=== PATIENT | male | born 1940 | race Caucasian/White ===

== ENCOUNTER → 2016-08-12 | Outpatient (CLI) | payer OTHER ==
[~2016-08-12] MED LIST: ASPCH81; BUPR-79 PO; LISI-725 PO
[2016-08-12 11:54] LABS: BASO % 0.4 %; BASO ABS # 0.03 K/uL (0-0.2); COMPLETE YES; EOS % 1.3 %; HEMATOCRIT 38.1 % (42-52); IG% 0.1 %; LYMPH % 28.8 %; MEAN CELL VOLUME 95.5 fL (80-100); MEAN CORPUSCULAR HEMOGLOBIN 31.6 pg (25-34); MEAN CORPUSCULAR HGB CONC 33.1 g/dl (32-36); MEAN PLATELET VOLUME 11.1 fL (7.4-10.4); NEUT % 60.4 %; PLATELET COUNT 211 K/uL (130-400); RED BLOOD COUNT 3.99 M/uL (4.7-6.1); WHITE BLOOD COUNT 7.63 K/uL (4.8-10.8)
[2016-08-12 12:05] LABS: ALT/SGPT 27 U/L (12-78); BLOOD UREA NITROGEN 21 mg/dl (7-18); BUN/CREATININE RATIO 13.3 (10-20); CARBON DIOXIDE 26 mmol/L (21-32); CHLORIDE 105 mmol/L (98-107); CHOLESTEROL 124 mg/dl (0-200); GLUCOSE 98 mg/dl (70-99); POTASSIUM 4.8 mmol/L (3.5-5.1); SODIUM 137 mmol/L (136-145); TRIGLYCERIDES 57 mg/dl (0-150); VERY LOW DENSITY LIPOPROT CALC 11 mg/dl
[2016-08-12 12:08] LABS: ALKALINE PHOSPHATASE 62 U/L (45-117); AST/SGOT 25 U/L (15-37); CHOLESTEROL/HDL RATIO 2.3; HDL CHOLESTEROL 54 mg/dl; LDL CHOLESTEROL CALCULATED 59 mg/dl
[2016-08-12 12:13] LABS: URINE APPEARANCE CLEAR (CLEAR); URINE BILIRUBIN NEG (NEG); URINE COLOR YELLOW; URINE EPITHELIAL CELL AUTO 0-5 /lpf (0-5); URINE NITRITE NEG (NEG); URINE SPECIFIC GRAVITY 1.008 (1.000-1.030); UROBILINOGEN NEG (NEG); ZZUR CULT IF INDIC CLEAN CATCH NO
[2016-08-12 12:16] LABS: MANUAL MICROSCOPIC REQUIRED? NO; REVIEW REQ? NO
[2016-08-12 12:18] LABS: CALCIUM 9.1 mg/dl (8.5-10.1)
== END | disposition home or self-care (01) ==
LOC: C.LABBFT 09:53
PROVIDERS: ATTEND Internal Medicine
DX: N18.3 Chronic kidney disease, stage 3 (moderate) (principal); D64.9 Anemia, unspecified; Z13.6 Encounter for screening for cardiovascular disorders

== ENCOUNTER → 2016-08-29 | Outpatient (CLI) | payer OTHER ==
--- NOTE | 2016-08-29 12:52 | DIAGNOSTIC IMAGING REPORT ---
CT LUNG SCREENING, LOW DOSE WITH COMPUTER-AIDED DETECTION (CAD) CLINICAL HISTORY: Smoking history. COMPARISON STUDY: Chest CT 11/27/2012. CT DOSE: TECHNIQUE: Low-dose helical CT was acquired without intravenous contrast from lung apices to bases and reconstructed at 2.5 mm every 2 mm. CAD was utilized for this study. FINDINGS: Mild paraseptal emphysema at the lung apices. Stable subcentimeter nodule on image 89. Therefore, this is considered to be benign. Stable subcentimeter nodule within the right upper lobe on image 154. Therefore, this is also considered be benign. These are better described below. Scattered patchy groundglass densities and cystic change within the left lower lobe and lingula remain unchanged. Therefore, this is consistent with chronic changes. Mild right posterior pleural thickening/trace pleural effusion remain stable. The ascending thoracic aorta measures up to 3.9 cm in diameter. The heart is normal in size. Tortuous descending thoracic aorta. Peripheral calcified granulomas within the lung apices. Peripheral irregular densities within the right lung apex favor scarring. This has slightly progressed in the interval. No mediastinal or hilar lymphadenopathy. The visualized liver, spleen, and adrenal glands are unremarkable. Nodule 1 Category: 2 Nodule 1 Status: Baseline Nodule 1 Description: Solid Nodule 1 Lesion ID: 2 Nodule 1 Slice Number: [id number] Nodule 1 Volume (mm3): 59 Nodule 1 Major [place] mm: 5.9 Nodule 1 Minor [place] mm: 4.8 Nodule 2 Category: 2 Nodule 2 Status: Baseline Nodule 2 Description: Solid Nodule 2 Lesion ID: 1 Nodule 2 Slice Number: [id number] Nodule 2 Volume (mm3): 35 Nodule 2 Major [place] mm: 5.4 Nodule 2 Minor [place] mm: 4.7 IMPRESSION: 1. Stable right upper lobe nodules. Therefore, these are considered to be benign. 2. Irregular peripheral scarlike densities within the right lung apex have progressed. This bears watching on future examinations. 3. Mild emphysema. CAD FINDINGS: Overall Lung RADS Category: 2 Lung RADS Management Recommendation: Lung-RADS 2: Continue annual screening in 12 months. Lung RADS Follow Up Date: 2017-08-29 Lung RADS Nodule ID: [id number] Electronically signed by: Federico Lacey M.D. 08/30/2016 8:30 AM Dictated Date/Time: 08/29/2016 11:40 AM
== END | disposition home or self-care (01) ==
LOC: C.CTS 11:21
PROVIDERS: ATTEND Internal Medicine
DX: Z87.891 Personal history of nicotine dependence (principal)

== ENCOUNTER → 2017-02-24 | Outpatient (CLI) | payer OTHER ==
[2017-02-24 12:42] LABS: BASO % 0.2 %; BASO ABS # 0.02 K/uL (0-0.2); COMPLETE YES; EOS % 3.2 %; HEMATOCRIT 38.9 % (42-52); IG% 0.5 %; LYMPH % 38.7 %; LYMPH ABS # 3.23 K/uL (1.2-3.4); MEAN CELL VOLUME 94.6 fL (80-100); MEAN CORPUSCULAR HEMOGLOBIN 31.9 pg (25-34); MEAN CORPUSCULAR HGB CONC 33.7 g/dl (32-36); MEAN PLATELET VOLUME 11.1 fL (7.4-10.4); MONO % 12.3 %; NEUT % 45.1 %; PLATELET COUNT 223 K/uL (130-400); RED BLOOD COUNT 4.11 M/uL (4.7-6.1); WHITE BLOOD COUNT 8.35 K/uL (4.8-10.8)
[2017-02-24 13:02] LABS: BLOOD UREA NITROGEN 34 mg/dl (7-18); BUN/CREATININE RATIO 18.1 (10-20); CARBON DIOXIDE 24 mmol/L (21-32); CHLORIDE 104 mmol/L (98-107); CREATININE 1.85 mg/dl (0.60-1.40); GLUCOSE 88 mg/dl (70-99); POTASSIUM 4.5 mmol/L (3.5-5.1); SODIUM 132 mmol/L (136-145)
[2017-02-24 13:09] LABS: PHOSPHORUS 2.7 mg/dl (2.5-4.9); PROSTATE SPECIFIC ANTIGEN < 0.010 ng/ml (0.000-4.000)
== END | disposition home or self-care (01) ==
LOC: C.LABBFT 09:05
PROVIDERS: ATTEND Internal Medicine
DX: N18.3 Chronic kidney disease, stage 3 (moderate) (principal); D64.9 Anemia, unspecified; E55.9 Vitamin D deficiency, unspecified; C61 Malignant neoplasm of prostate

== ENCOUNTER → 2017-06-01 | Outpatient (CLI) | payer OTHER ==
[2017-06-01 12:29] LABS: ALBUMIN 3.5 gm/dl (3.4-5.0); BLOOD UREA NITROGEN 28 mg/dl (7-18); CALCIUM 9.1 mg/dl (8.5-10.1); CARBON DIOXIDE 26 mmol/L (21-32); CREATININE 1.67 mg/dl (0.60-1.40); GLUCOSE 100 mg/dl (70-99); POTASSIUM 4.7 mmol/L (3.5-5.1); SODIUM 136 mmol/L (136-145)
[2017-06-01 12:30] LABS: PHOSPHORUS 2.3 mg/dl (2.5-4.9)
== END | disposition home or self-care (01) ==
LOC: C.LABBFT 09:20
PROVIDERS: ATTEND Internal Medicine
DX: N18.3 Chronic kidney disease, stage 3 (moderate) (principal)

== ENCOUNTER 2024-06-07 14:49 | Inpatient (IN) ==
[2024-06-07 15:25] LABS: Basophils # (auto) 0.03 K/uL (0.00-0.20); Basophils % (auto) 0.3 %; Eosinophils # (auto) 0.02 K/uL (0.00-0.50); Eosinophils % (auto) 0.2 %; Hematocrit (blood only) 32.3 % (42.0-52.0); Immature Granulocytes # (auto) 0.32 K/uL (0.01-0.20); Immature Granulocytes % (auto) 2.8 %; Lymphocytes # (auto) 2.61 K/uL (1.20-3.40); Lymphocytes % (auto) 22.7 %; Mean Corpuscular Hemoglobin 30.7 pg (25.0-34.0); Mean Corpuscular Hgb Conc 34.1 g/dL (32.0-36.0); Mean Corpuscular Volume 90.2 fL (80.0-100.0); Mean Platelet Volume 11.1 fL (9.4-12.4); Monocytes # (auto) 0.86 K/uL (0.11-0.59); Monocytes % (auto) 7.5 %; Neutrophils # (auto) 7.64 K/uL (1.40-6.50); Neutrophils % (auto) 66.5 %; Platelet Count 213 K/uL (130-400); RDW Coefficient of Variation 14.1 % (11.5-14.5); RDW Standard Deviation 46.5 fL (36.4-46.3); Red Blood Count 3.58 M/uL (4.70-6.10); White Blood Count 11.48 K/ul (4.8-10.8)
[2024-06-07 16:02] LABS: Adenovirus PCR Not Detected (NotDetected); Bordetella parapertussis PCR Not Detected (NotDetected); Bordetella pertussis PCR Not Detected (NotDetected); Chlamydia pneumoniae PCR Not Detected (NotDetected); Coronavirus 229E PCR Not Detected (NotDetected); Coronavirus CoV-2 (COVID19)PCR Not Detected (NotDetected); Coronavirus HKU1 PCR Not Detected (NotDetected); Coronavirus NL63 PCR Not Detected (NotDetected); Coronavirus OC43PCR Not Detected (NotDetected); Human Metapneumovirus PCR Not Detected (NotDetected); Influenza A (H1 2009) PCR DETECTED (NotDetected); Influenza B PCR Not Detected (NotDetected); Mycoplasma pneumoniae PCR Not Detected (NotDetected); Parainfluenza Virus 1 PCR Not Detected (NotDetected); Parainfluenza Virus 2 PCR Not Detected (NotDetected); Parainfluenza Virus 3 PCR Not Detected (NotDetected); Parainfluenza Virus 4 PCR Not Detected (NotDetected); Respiratory Syncytial VirusPCR Not Detected (NotDetected); Rhinovirus/Enterovirus PCR Not Detected (NotDetected)
[2024-06-07 16:06] LABS: Albumin Level 3.8 gm/dl (3.4-5.0); BUN Creatinine Ratio 13.7 (10-20); Bilirubin,Total 0.3 mg/dl (0.2-1.0); Calcium 9.2 mg/dl (8.6-10.3); Creatinine Clr Calc Pharmacy 7.4 ml/min; Globulin 3.7 gm/dl (2.5-4.0); Magnesium 1.9 mg/dl (1.7-2.4); Potassium 4.5 mmol/L (3.5-5.1); Total Protein 7.5 gm/dl (6.0-8.3)
--- NOTE | 2024-06-07 16:06 | XRay Report ---
XR chest 1V not portable CLINICAL HISTORY: Weakness COMPARISON STUDY: 09/03/2018 FINDINGS: Heart size and pulmonary vasculature are normal. There is aortic tortuosity. No effusion, c onsolidation, or pneumothorax seen. There are a few old healed right rib fractures. IMPRESSION: No acute findings. ACT 112: Negative or not required by law. Electronically signed by: Nilton Thacker M.D. 06/07/2024 4:04 PM
[2024-06-07] MEDS: SODIUM CHLORIDE 0.9% 1,000 ML IV SCH (16:51)
[2024-06-07] MEDS: SODIUM CHLORIDE 0.9% 250 ML IV ONE (16:51)
--- NOTE | 2024-06-07 16:53 | CT Scan Report ---
Clinical History: Diarrhea. Decreased appetite Technique: Axial computed tomography images were obtained of the abdomen and pelvis without intravenous contrast. Comparison is made to the chest CT dated 09/03/2018 Findings: The liver is overall of normal size, attenuation, and contour with no sign of cirrhosis or significant fatty infiltration. No definite liver mass lesion is seen on this noncontrast study. The gallbladder appears unremarkable. No bile duct dilatation is noted. The spleen is of normal size. No focal splenic lesion is evident. The pancreas appears normal with no sign of acute or chronic pancreatitis and no mass lesion noted. The pancreatic duct is of normal caliber. The adrenal glands appear unremarkable. No renal or proximal ureteral calculi are seen. There is no hydronephrosis or perinephric stranding. No definite renal mass lesion is identified. There is a 1.6 cm right renal cyst as well as a 1.3 cm right renal cyst There is a mild infrarenal abdominal aortic aneurysm, measuring up to 3.3 cm. No abdominal adenopathy is seen. The stomach appears normal. There is no sign of small bowel obstruction. The colon appears unremarkable. The appendix appears normal also. No free intraperitoneal fluid or air is identified. No distal ureteral or bladder calculi are seen. No obvious bladder mass lesion is evident. 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 No pelvic adenopathy is noted. There are radiotherapy implant seeds within the prostate. There are small bilateral inguinal hernias containing any fat There is unchanged pleural thickening in the right lung base. There are new multifocal centrilobular interstitial and nodular opacities in the lung bases bilaterally, most likely due to bronchopneumonia. The visualized descending thoracic aorta is mildly aneurysmal, measuring 3.1 cm. There is coronary atherosclerosis Lumbar degenerative disc disease is seen. No fracture is identified. No focal osseous lesion is seen Impression: 1. Bilateral bronchopneumonia 2. Mild thoracic aortic aneurysm and mild abdominal aortic aneurysm. 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 Small right renal cysts 4. Small bilateral inguinal hernias containing only fat ACT 112: Positive. There are findings on this exam that require communication between the performing entity and the patient following Patient Test Result Information Act ([place] ACT 112) guidelines. Electronically signed by Terry Corbett 06-07-2024 4:53 PM
--- NOTE | 2024-06-07 17:45 | Emergency Department Note ---
Impression & Plan Influenza, Pneumonia, Acute dehydration, Acute kidney injury, Acute hyponatremia ED Provider Note NAME: RAFAEL TREVINO AGE: 83 SEX: Male INFORMANT: Patient ED PROVIDER(S): Grayson Trinidad MD CHIEF COMPLAINT: Lethargy PLAN: Disposition: Admitted Outpatient prescription management: none Referral: None MEDICAL DECISION MAKING: Patient presented because of feeling lethargic. Workup was initiated. Vital signs were stable. He was found to be flu positive on [employer] testing. CBC and chemistry panel revealed acute kidney injury and hyponatremia. Patient was gently hydrated. Chest x-ray was unremarkable. CT scan of the abdomen and pelvis was done to rule out any obstructive process. He was found to have no evidence of obstruction from a renal standpoint but was found to have pneumonia in the bases. Procalcitonin, blood cultures and antibiotics were ordered. I did discuss his case with on-call nephrology, Dr. Mota. He agreed to hydration and admission for medical management. Consultation was made with Dr. Silva of the [facility] service. Patient was evaluated in the ER for further management. Care/management discussed with: Nephrology, case management Level of care consideration(s): After review of the information above and other included data, I feel the patient requires escalation of care to admission Triage Nursing notes: reviewed and agree them. Vital Signs: reviewed and remarkable for no significant abnormalities Additional History obtained from: none Chronic Medical/Social Conditions affecting care: CKD Prior/ Outside/ External records reviewed: none Differential Diagnosis: Infection, dehydration, metabolic abnormality, hypo/hyperglycemia, electrolyte disturbance, anemia, hypoxia, cardiac sources, intracerebral event, toxicologic, neurologic, as well as other pathologies. Diagnostics, independently interpreted by me: ECG: Twelve-lead ECG reveals a sinus rhythm with PACs at [address] elevation or depression. Cardiac Monitoring: none Medical decision rules: Cardiac monitoring ordered by me: The patient was placed on continuous cardiac monitoring and observed. It revealed a sinus rhythm at 80 bpm with occasional PVC. Imaging studies: Chest x-ray. Findings: A chest x-ray was performed and revealed no pneumothorax, effusion, infiltrate, pulmonary edema, free air under the diaphragm, or wide mediastinum. Impression: No acute disease. CT scan of the abdomen pelvis reveals bibasilar infiltrates. No hydronephrosis or hydroureter. I refer you to the EMR for further details. HPI: 83 year old Male arrives for evaluation of lethargy and abnormal labs. This started earlier this week with flulike symptoms. Patient notes poor p.o. intake and had diarrhea. The patient also notes the following associated symptoms, generalized weakness. Patient denies any leg swelling. He does also note decreased urine output.. The patient has found no relieving factors. Current pain is rated as 0/10. Patient had outpatient blood work by his [employer] architect, Dr. Luevano. He was told to come to the ER due to abnormalities with his renal function. Pt denies LOC, headache, fevers, chills, diaphoresis, visual changes, neck pain, chest pain, breathing difficulties, nausea, vomiting, abdominal pain, back pain, melena, hematochezia, rash, or other complaints.. PAST MEDICAL HISTORY: See Below, CKD PAST SURGICAL HISTORY: See Below, SOCIAL HISTORY: See Below, retired HOME MEDICATIONS: See Below ALLERGIES: See Below VITALS: See Below PHYSICAL EXAMINATION: GENERAL: Awake, alert, [id number], in no distress HENT: Normocephalic, atraumatic. Oropharynx unremarkable. EYES: Normal conjunctiva. Sclera non-icteric. NECK: Inspection normal. Non-tender. Supple. No nuchal rigidity. FROM. No masses. RESPIRATORY: Clear to auscultation. No wheezes. No rales. Normal respiratory effort. CARDIAC: Normal rate. Normal rhythm. Systolic ejection murmur present. No rubs. Extremities warm and well perfused. Pulses equal. No JVD. GI: Soft, non-distended. No tenderness to palpation. No rebound or guarding. No masses. RECTAL: Deferred. MUSCULOSKELETAL: Atraumatic. Chest examination reveals no tenderness. The back is symmetrical on inspection without obvious abnormality. There is no CVA tenderness to palpation. No joint edema. LOWER EXTREMITIES: Calves are equal size bilaterally and non-tender. No edema. No discoloration. NEURO: Normal sensorium. No sensory or motor deficits noted. SKIN: No rash or jaundice noted. PROCEDURES: none CRITICAL CARE: none OBSERVATION NOTE: none Past Med/Surg History Problem List (Updated 06/07/24 @ 17:45 by Grayson Trinidad MD) Acute hyponatremia (Acute) Acute kidney injury (Acute) Acute dehydration (Acute) Pneumonia (Acute) Influenza (Acute) Ascending aorta dilatation Prediabetes pt denies Vitamin B 12 deficiency Pulmonary nodules Metabolic acidosis Vitamin D deficiency (Acute) Hearing loss (Acute) Anxiety (Chronic) COPD (chronic obstructive pulmonary disease) (Chronic) pt denies - does not use inhalers Dyslipidemia (Chronic) Hypertension (Chronic) Anemia (Chronic) Aortic stenosis (Acute) follows with Dr Becker Chronic kidney disease, stage 4 (severe) pt unsure if he is currently in stage 3 or 4 Secondary hyperparathyroidism of renal origin pt unsure of details Descending aortic aneurysm pt denies Medical History History of brachytherapy (~2009) Surgical History History of cataract surgery History of colonoscopy H/O tooth extraction Family History Mother Diabetes Father Unknown family medical history Brother Stroke Brother Unknown family medical history Brother Unknown family medical history Sister Unknown family medical history Sister Unknown family medical history Other Hypertension No family history of adverse response to anesthesia No pertinent family history Denies family history of Ovarian cancer Prostate cancer Coronary heart disease Myocardial infarction Breast cancer Colorectal cancer Social History Smoking Status: Former smoker Tobacco Type: Cigarettes Age Started Using Tobacco: 32; Age Quit Using Tobacco: 80; packs per day: 0.5; Second Hand Exposure: Yes (hx); Do You Dip or Chew Tobacco: No; Hx Alcohol Use: Yes Alcohol type: beer Alcohol Intake Frequency: 4 or More x per/Week Preferred Language: Kazakh Communication Ability: Effective Communication Ability Comment: Patient is [place] Visual Impairment: No Limitations Hearing Ability: Use of Hearing Aid Trim Line Worker Required: No Beliefs That Will Affect Care: None marital status: / Current Living Situation: Alone current occupational status: retired current occupation: [employer] Feels Safe at Home: Yes Childhood Exposure to Second-Hand Smoke: Yes Diet: regular caffeine: Yes during the past year weight has: remained stable Dental Care, Regularly: No Physical Activity Frequency: Daily Seatbelt Use: always Sunscreen Use: No Do you think of yourself as: straight/heterosexual Gender Identity: Male Assistive Devices: Denture - Upper, Denture - Lower, Glasses and Hearing Aid - Bilateral Allergies Allergies Allergy/AdvReac Type Severity Reaction Status Date / Time No Known Allergies Allergy Verified 06/07/24 17:17 Home Meds Previous Rx's Medication Instructions Recorded bupropion HCl 150 mg tablet,12 hr 150 mg PO HS #90 ea 01/25/24 sustained-release cholecalciferol (vitamin D3) 25 2,000 unit PO QAM #90 caps 01/25/24 mcg (1,000 unit) capsule (Vitamin D3) lisinopril 20 mg tablet 20 mg PO QAM #90 tabs 04/09/24 atorvastatin 20 mg tablet 20 mg PO HS #90 tabs 05/07/24 dapagliflozin propanediol 10 mg 10 mg PO DAILY #90 tabs 05/09/24 tablet Results & Data (ED) Vital Signs Vital Signs - 24 hr 06/07/24 14:56 06/07/24 16:00 06/07/24 16:53 Temperature 36.1 C L Temperature Source Temporal Artery Scan Pulse Rate 97 H 87 Pulse Rate [Left Finger] 72 Respiratory Rate 20 16 Respiratory Effort / Characteristics Non-Labored Spontaneous Respiratory Depth Normal Blood Pressure 113/71 Blood Pressure [Left Arm] 119/68 Blood Pressure Mean 85 Blood Pressure Mean [Left Arm] 85 Pulse Oximetry 96 98 Oxygen Delivery Method Room Air Sepsis Recent Fever Within 48 Hours No Sepsis New/Unexplained Change in Mental Status N/A Sepsis Action Taken by Nursing No Action Required Laboratory Data 06/07/24 15:03 06/07/24 15:03 Lab Results 06/07/24 06/07/24 Range/Units 15:00 15:03 WBC 11.48 H (4.8-10.8) K/ul RBC 3.58 L (4.70-6.10) M/uL Hgb 11.0 L (14.0-18.0) g/dl Hct 32.3 L (42.0-52.0) % MCV 90.2 (80.0-100.0) fL MCH 30.7 (25.0-34.0) pg MCHC 34.1 (32.0-36.0) g/dL RDW Std Deviation 46.5 H (36.4-46.3) fL RDW Coeff of Perez 14.1 (11.5-14.5) % Plt Count 213 (130-400) K/uL MPV 11.1 (9.4-12.4) fL Immature Gran % (Auto) 2.8 % Neut % (Auto) 66.5 % Lymph % (Auto) 22.7 % [place] % (Auto) 7.5 % Eos % (Auto) 0.2 % Baso % (Auto) 0.3 % Neut # (Auto) 7.64 H (1.40-6.50) K/uL Lymph # (Auto) 2.61 (1.20-3.40) K/uL [place] # (Auto) 0.86 H (0.11-0.59) K/uL Eos # (Auto) 0.02 (0.00-0.50) K/uL Baso # (Auto) 0.03 (0.00-0.20) K/uL Immature Gran # (Auto) 0.32 H (0.01-0.20) K/uL Sodium 128 L (136-145) mmol/L Potassium 4.5 (3.5-5.1) mmol/L Chloride 99 (98-107) mmol/L Carbon Dioxide 16 L (21-32) mmol/L Anion Gap 13 H (3-11) BUN 100 H (6-23) mg/dl Creatinine 7.32 H* (0.6-1.4) mg/dl Est Cr Clr Drug Dosing 7.4 ml/min eGFR 6.94 BUN/Creatinine Ratio 13.7 (10-20) Glucose 105 H (70-99(Fasting)) mg/dl Calcium 9.2 (8.6-10.3) mg/dl Magnesium 1.9 (1.7-2.4) mg/dl Total Bilirubin 0.3 (0.2-1.0) mg/dl AST 95 H (13-39) U/L ALT 61 H (7-52) U/L Alkaline Phosphatase 57 (34-104) U/L Total Protein 7.5 (6.0-8.3) gm/dl Albumin 3.8 (3.4-5.0) gm/dl Globulin 3.7 (2.5-4.0) gm/dl Albumin/Globulin Ratio 1.0 (0.9-2) Nasal Influ A H1 2008 PCR DETECTED A (NotDetected) Adenovirus (PCR) Not Detected (NotDetected) B. pertussis DNA (PCR) Not Detected (NotDetected) B.parapertussis DNA PCR Not Detected (NotDetected) C. pneumoniae DNA (PCR) Not Detected (NotDetected) Coronavirus OC43 (PCR) Not Detected (NotDetected) Coronavirus HKU1 (PCR) Not Detected (NotDetected) Coronavirus 229E (PCR) Not Detected (NotDetected) SARS-CoV-2 (PCR) Not Detected (NotDetected) Coronavirus NL63 (PCR) Not Detected (NotDetected) Human Metapneumovir PCR Not Detected (NotDetected) Influenza Type B (PCR) Not Detected (NotDetected) M. pneumoniae (PCR) Not Detected (NotDetected) Parainfluenza 1 (PCR) Not Detected (NotDetected) Parainfluenza 2 (PCR) Not Detected (NotDetected) Parainfluenza 3 (PCR) Not Detected (NotDetected) Parainfluenza 4 (PCR) Not Detected (NotDetected) RSV (PCR) Not Detected (NotDetected) Entero/Rhino (PCR) Not Detected (NotDetected) Administered Medications Sodium Chloride (Nss) 1,000 mls @ 125 mls/hr IV .Q8H EDGAR Stop: 06/08/24 16:29 Last Admin: 06/07/24 16:51 Dose: 125 mls/hr Documented By: RIGO Discontinued Medications Sodium Chloride (Nss) 250 mls @ 999 mls/hr IV .Q16M ONE Stop: 06/07/24 16:35 Last Admin: 06/07/24 16:51 Dose: 999 mls/hr Documented By: RIGO Imaging Data Radiologist's Impression: Chest X-Ray 06/07/24 15:01 XR chest 1V not portable CLINICAL HISTORY: Weakness COMPARISON STUDY: 09/03/2018 FINDINGS: Heart size and pulmonary vasculature are normal. There is aortic tortuosity. No effusion, consolidation, or pneumothorax seen. There are a few old healed right rib fractures. IMPRESSION: No acute findings. ACT 112: Negative or not required by law. Electronically signed by: Nilton Thacker M.D. 06/07/2024 4:04 PM Abdomen/Pelvis CT 06/07/24 16:20 Clinical History: Diarrhea. Decreased appetite Technique: Axial computed tomography images were obtained of the abdomen and pelvis without intravenous contrast. Comparison is made to the chest CT dated 09/03/2018 Findings: The liver is overall of normal size, attenuation, and contour with no sign of cirrhosis or significant fatty infiltration. No definite liver mass lesion is seen on this noncontrast study. The gallbladder appears unremarkable. No bile duct dilatation is noted. The spleen is of normal size. No focal splenic lesion is evident. The pancreas appears normal with no sign of acute or chronic pancreatitis and no mass lesion noted. The pancreatic duct is of normal caliber. The adrenal glands appear unremarkable. No renal or proximal ureteral calculi are seen. There is no hydronephrosis or perinephric stranding. No definite renal mass lesion is identified. There is a 1.6 cm right renal cyst as well as a 1.3 cm right renal cyst There is a mild infrarenal abdominal aortic aneurysm, measuring up to 3.3 cm. No abdominal adenopathy is seen. The stomach appears normal. There is no sign of small bowel obstruction. The colon appears unremarkable. The appendix appears normal also. No free intraperitoneal fluid or air is identified. No distal ureteral or bladder calculi are seen. No obvious bladder mass lesion is evident. 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 No pelvic adenopathy is noted. There are radiotherapy implant seeds within the prostate. There are small bilateral inguinal hernias containing any fat There is unchanged pleural thickening in the right lung base. There are new multifocal centrilobular interstitial and nodular opacities in the lung bases bilaterally, most likely due to bronchopneumonia. The visualized descending thoracic aorta is mildly aneurysmal, measuring 3.1 cm. There is coronary atherosclerosis Lumbar degenerative disc disease is seen. No fracture is identified. No focal osseous lesion is seen Impression: 1. Bilateral bronchopneumonia 2. Mild thoracic aortic aneurysm and mild abdominal aortic aneurysm. 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 Small right renal cysts 4. Small bilateral inguinal hernias containing only fat ACT 112: Positive. There are findings on this exam that require communication between the performing entity and the patient following Patient Test Result Information Act ([place] ACT 112) guidelines. Electronically signed by Terry Corbett 06-07-2024 4:53 PM Discharge Plan Visit Data Chief Complaint: Lethargic Stated Complaint: NOT FEELING WELL ED Provider: Grayson Trinidad Discharge Problem: Influenza, Pneumonia, Acute dehydration, Acute kidney injury, Acute hyponatremia Forms Stand Alone Forms: My [facility] Prescriptions Prescriptions: No Action bupropion HCl 150 mg tablet sustained-release 12 hr 150 mg PO HS Qty: 90 3RF cholecalciferol (vitamin D3) [Vitamin D3] 25 mcg (1,000 unit) capsule 2,000 unit PO QAM Qty: 90 3RF atorvastatin 20 mg tablet 20 mg PO HS Qty: 90 3RF lisinopril 20 mg tablet 20 mg PO QAM Qty: 90 3RF Hold Instructions: jatinder dapagliflozin propanediol 10 mg tablet 10 mg PO DAILY Qty: 90 3RF Hold Instructions: jatinder Referrals Referrals: Simon Masters MD [Primary Care Provider] -
[2024-06-07] MEDS ORDERED: ACETAMINOPHEN 325 MG TAB PO PRN (17:51)
[2024-06-07] MEDS ORDERED: ALBUT/IPRATROP 3MG/0.5MG NEB 3 ML VIAL NEB PRN (17:51)
[2024-06-07] MEDS ORDERED: ONDANSETRON INJ 2 MG/ML 2 ML VIAL IV PRN (17:51)
--- NOTE | 2024-06-07 17:53 | History & Physical Report ---
<Statement entered by Abiola Nick MD - 06/07/24 19:33> I have reviewed vital signs, chart notes, labs and imaging. I have personally seen, evaluated and examined the patient. I have also discussed the management of the patient with the SHIMA and I agree with the exam findings documented in the history and physical examination and the documented assessment and plan unless otherwise stated below. 83 y/o influenza with diarrhea - no diarrhea >48h now. Weak, cough. Last urinated after lunch - small amount, was clear My exam notable for abdomen s/nt/nd +BT, coarse ronchi bilateral lower lobes but normal WOB, no peripheral edema, ext wwp A/P: PHI on CKD-4, prerenal injury, metabolic acidosis - IV fluids with bicarb. Strictly measure UOP, if unclear or low UOP place bautista. Monitor serial BMP. Nephrology consult. Urine Na, Cr for ATN evaluation. No need for urgent dialysis. High risk of worsening or slow/little improvement because of underlying CKD4 Influenza - tamiflu Bilateral lower lobe PNA - CTX/doxy, mrsa nares and sputum cx pending Date of Service June 07, 2024 Assessment & Plan (1) Pneumonia: Plan: 83yo admitted for PHI/hyponatremia and found to have +flu/bilateral pneumonia, concerns for bacteremia/sepsis w/ PHI and Na 128 as well given procal resulted after ER sign out at 4.2 and blood cx were sent from ER thankfully Admit med w/ telemetry Ceftriaxone/Doxy, check MRSA nares Tamiflu for +flu, Isolation precautions Follow blood cultures, will add lactic as well. Procal resulted as above Sputum as able Incentive spirometer, flutter valve Duonebs as needed, O2 to maintain sats if needed but on RA at present Supplemental O2 if needed Avoiding mucinex w/ PHI/Cr 7 but if resolved can consider. see below/nephrology consultation IVF for dehydration -->will change NS @ 125cc/hr to D5 1/2NS + 50meq NaHCO for CO2 16 w/ diarrhea and anion gap to 13.Repeat labs/adjust IVF as needed Holding home dapagliflozin, suspect worsened dehydration, also holding RUDY w/ PHI below Monitor labs/exam in AM Will plan to add Heparin SQ for DVT proph, lovenox avoided w/ PHI *notable does have hx COPD/emphysema per PCP note, smoking hx but quit 2020. Also notes ascending thoracic aorta and dilatation of descending aorta 3.6cm which does not appear significantly changed on admission imaging (2) Influenza: Plan: +flu testing, tamiflu 75mg PO x 1, begin PO in am/renal dosed Isolation precautions, abx for superimposed pneumonia as above and supportive care (3) Acute kidney injury: Plan: Cr 7.4 from 2-3 baseline, follows w/ Dr Waters. CTAP on admission without obstruction Per ER provider, no need for HD at this time and rec hydration and monitoring, consult placed and appreciate recs/assistance once seen In meantime, IVF ordered but changed to D51/2NS + 50meq Bicarb given anion gap 13, poor PO intake and dehydration w/ Bicarb for CO2 16 likely from diarrhea losses Renal dose meds, avoid nephrotoxins -Hold lisinopril, dapagliflozin Monitor renal function/CMP in AM to f/u AST/ALT but also will check CK (4) Acute hyponatremia: Plan: Na 128, suspected 2nd to poor po intake/dehydration/diarrhea as well as acute infection w/ flu and pneumonia but also could be 2nd to sepsis/bacteremia TSH added w/ next labs, CK, but IVF as above and monitor on repeat Further eval if remains low despite IVF (5) Acute dehydration: Plan: IVF as above, adjust as needed pending repeat BMP (6) Chronic kidney disease, stage 4 (severe): Plan: as above, nephrology consulted also hx prostate ca but no longer follows w/ urology as prior PSA reported undetectable and as above no issues on CTAP reported Plan DVT proph: heparin SQ BID Dispo: admit med w/ tele. IVF/abx/nephrology consulted and PT/OT evals ordered (typically uses cane at baseline) FULL CODE, family updated at bedside History of Present Illness Chief Complaint: PHI, weakness, Flu, dehydration, hyponatremia Primary Care Provider: Simon Masters MD 83yo male with hx renal insufficiency followed by Dr Waters outpatient developed the flu this past week and had poor PO intake along with diarrhea this week and outpatient labs showed hyponatremia and PHI w/ Cr to 7 suspected from poor PO intake/dehydration and flu but also found to have b/l pneumonia as well and nephrology notified by ER provider and recommended hydration and no need for HD this morning and will follow. Admission for abx, IV hydration and nephrology consult along with therapy consultation and supportive care and treatment of his pneumonia. +flu testing, procal and blood cx pending and ordered for Ceftriaxone/Doxy in ER but not yet given. Eval in C5, multiple family in room. Had cough/sputum this past week along with significant diarrhea and poor PO intake. . Denied dysuria or burning but did note decreased urine output. No fever at home but did report he couldn't get warm prior. Discussed he does NOT want HD, but did have discussion suspected combination renal insufficiency along with ongoing RUDY/dapagliflozin probably worsened renal function and dehydration in setting of acute illness. He is dissappointed about need for admission but agreeable and hopefully discharge in next 24-48 hours pending response. IVF changed to improve anion gap/acidosis suspected from diarrhea and will monitor his labs/encouraged PO intake. Notable, denied vomiting. Alert/oriented, uses cane for ambulation. Discussed UA and sputum cx and FISH TRAPPER notified to provide cup and hat for sample. Discussed possibly flu developed into bacterial PNA and will tx both. Full code. Family updated at bedside, questions/concerns addressed at this time. Allergies Allergy/AdvReac Type Severity Reaction Status Date / Time No Known Allergies Allergy Verified 06/07/24 17:17 Home Medications Medication Instructions Recorded Confirmed Type bupropion HCl 150 mg tablet,12 hr 150 mg PO HS #90 ea 01/25/24 06/07/24 Rx sustained-release cholecalciferol (vitamin D3) 25 2,000 unit PO QAM #90 caps 01/25/24 06/07/24 Rx mcg (1,000 unit) capsule (Vitamin D3) lisinopril 20 mg tablet 20 mg PO QAM #90 tabs 04/09/24 06/07/24 Rx atorvastatin 20 mg tablet 20 mg PO HS #90 tabs 05/07/24 06/07/24 Rx dapagliflozin propanediol 10 mg 10 mg PO DAILY #90 tabs 05/09/24 06/07/24 Rx tablet Past Med/Surg History Problem List (Updated 06/07/24 @ 17:45 by Grayson Trinidad MD) Acute hyponatremia (Acute) Acute kidney injury (Acute) Acute dehydration (Acute) Pneumonia (Acute) Influenza (Acute) Ascending aorta dilatation Prediabetes pt denies Vitamin B 12 deficiency Pulmonary nodules Metabolic acidosis Vitamin D deficiency (Acute) Hearing loss (Acute) Anxiety (Chronic) COPD (chronic obstructive pulmonary disease) (Chronic) pt denies - does not use inhalers Dyslipidemia (Chronic) Hypertension (Chronic) Anemia (Chronic) Aortic stenosis (Acute) follows with Dr Becker Chronic kidney disease, stage 4 (severe) pt unsure if he is currently in stage 3 or 4 Secondary hyperparathyroidism of renal origin pt unsure of details Descending aortic aneurysm pt denies Medical History History of brachytherapy (~2009) Surgical History History of cataract surgery History of colonoscopy H/O tooth extraction Family History Mother Diabetes Father Unknown family medical history Brother Stroke Brother Unknown family medical history Brother Unknown family medical history Sister Unknown family medical history Sister Unknown family medical history Other Hypertension No family history of adverse response to anesthesia No pertinent family history Denies family history of Ovarian cancer Prostate cancer Coronary heart disease Myocardial infarction Breast cancer Colorectal cancer Social History Smoking Status: Former smoker Tobacco Type: Cigarettes Age Started Using Tobacco: 32; Age Quit Using Tobacco: 80; packs per day: 0.5; Second Hand Exposure: Yes (hx); Do You Dip or Chew Tobacco: No; Hx Alcohol Use: Yes Alcohol type: beer Alcohol Intake Frequency: 4 or More x per/Week Preferred Language: Montene[place]in Communication Ability: Effective Communication Ability Comment: Patient is [place] Visual Impairment: No Limitations Hearing Ability: Use of Hearing Aid Speech/Language Therapist Required: No Beliefs That Will Affect Care: None marital status: / Current Living Situation: Alone current occupational status: retired current occupation: [employer] Feels Safe at Home: Yes Childhood Exposure to Second-Hand Smoke: Yes Diet: regular caffeine: Yes during the past year weight has: remained stable Dental Care, Regularly: No Physical Activity Frequency: Daily Seatbelt Use: always Sunscreen Use: No Do you think of yourself as: straight/heterosexual Gender Identity: Male Assistive Devices: Denture - Upper, Denture - Lower, Glasses and Hearing Aid - Bilateral Review of Systems Review of Systems: All systems reviewed & are unremarkable except as noted in HPI & below Physical Exam Physical Exam: General: 83yo male laying in bed, drinking water, family in room, fatigued/generalized weakness but NAD HEENT: head atraumatic, normocephalic, cataracts, mm DRY, trachea midline, HARD OF HEARING Resp: bibasilar crackles/rales, no overt wheezing/tachypnea, occ cough, on ROOM AIR CV: RRR, no significant m/r/g, no pitting edema/calf tenderness GI: +BS, soft/no overt tenderness/guarding MSK/Neuro: generalized weakness but nonfocal, not confused, answering questions appropriately b/l LE abrasions, no cellulitis/drainage Psych: AOx3, cooperative with exam Results & Data Results & Data Vital Signs (Past 12 Hours) Vital Signs Temp Pulse Pulse Resp BP BP Pulse Ox 06/07/24 16:53 87 06/07/24 16:00 72 16 119/68 98 06/07/24 14:56 36.1 C L 97 H 20 113/71 96 O2 Del Method 06/07/24 16:53 06/07/24 16:00 06/07/24 14:56 Room Air Laboratory Results 06/07/24 06/07/24 06/07/24 Range/Units 18:10 15:06 15:03 WBC 11.48 H (4.8-10.8) K/ul RBC 3.58 L (4.70-6.10) M/uL Hgb 11.0 L (14.0-18.0) g/dl Hct 32.3 L (42.0-52.0) % MCV 90.2 (80.0-100.0) fL MCH 30.7 (25.0-34.0) pg MCHC 34.1 (32.0-36.0) g/dL RDW Std Deviation 46.5 H (36.4-46.3) fL RDW Coeff of Perez 14.1 (11.5-14.5) % Plt Count 213 (130-400) K/uL MPV 11.1 (9.4-12.4) fL Immature Gran % (Auto) 2.8 % Neut % (Auto) 66.5 % Lymph % (Auto) 22.7 % Grady % (Auto) 7.5 % Eos % (Auto) 0.2 % Baso % (Auto) 0.3 % Neut # (Auto) 7.64 H (1.40-6.50) K/uL Lymph # (Auto) 2.61 (1.20-3.40) K/uL Grady # (Auto) 0.86 H (0.11-0.59) K/uL Eos # (Auto) 0.02 (0.00-0.50) K/uL Baso # (Auto) 0.03 (0.00-0.20) K/uL Immature Gran # (Auto) 0.32 H (0.01-0.20) K/uL Sodium 128 L (136-145) mmol/L Potassium 4.5 (3.5-5.1) mmol/L Chloride 99 (98-107) mmol/L Carbon Dioxide 16 L (21-32) mmol/L Anion Gap 13 H (3-11) BUN 100 H (6-23) mg/dl Creatinine 7.32 H* (0.6-1.4) mg/dl Est Cr Clr Drug Dosing 7.4 ml/min eGFR 6.94 BUN/Creatinine Ratio 13.7 (10-20) Glucose 105 H (70-99(Fasting)) mg/dl Calcium 9.2 (8.6-10.3) mg/dl Magnesium 1.9 (1.7-2.4) mg/dl Total Bilirubin 0.3 (0.2-1.0) mg/dl AST 95 H (13-39) U/L ALT 61 H (7-52) U/L Alkaline Phosphatase 57 (34-104) U/L Total Protein 7.5 (6.0-8.3) gm/dl Albumin 3.8 (3.4-5.0) gm/dl Globulin 3.7 (2.5-4.0) gm/dl Albumin/Globulin Ratio 1.0 (0.9-2) Procalcitonin 4.20 H (0-0.5) ng/ml TSH Pending Nasal Influ A H1 2008 PCR (NotDetected) Nasal Screen MRSA (PCR) Pending Adenovirus (PCR) (NotDetected) B. pertussis DNA (PCR) (NotDetected) B.parapertussis DNA PCR (NotDetected) C. pneumoniae DNA (PCR) (NotDetected) Coronavirus OC43 (PCR) (NotDetected) Coronavirus HKU1 (PCR) (NotDetected) Coronavirus 229E (PCR) (NotDetected) SARS-CoV-2 (PCR) (NotDetected) Coronavirus NL63 (PCR) (NotDetected) Human Metapneumovir PCR (NotDetected) Influenza Type B (PCR) (NotDetected) M. pneumoniae (PCR) (NotDetected) Parainfluenza 1 (PCR) (NotDetected) Parainfluenza 2 (PCR) (NotDetected) Parainfluenza 3 (PCR) (NotDetected) Parainfluenza 4 (PCR) (NotDetected) RSV (PCR) (NotDetected) Entero/Rhino (PCR) (NotDetected) 06/07/24 Range/Units 15:00 WBC (4.8-10.8) K/ul RBC (4.70-6.10) M/uL Hgb (14.0-18.0) g/dl Hct (42.0-52.0) % MCV (80.0-100.0) fL MCH (25.0-34.0) pg MCHC (32.0-36.0) g/dL RDW Std Deviation (36.4-46.3) fL RDW Coeff of Perez (11.5-14.5) % Plt Count (130-400) K/uL MPV (9.4-12.4) fL Immature Gran % (Auto) % Neut % (Auto) % Lymph % (Auto) % Grady % (Auto) % Eos % (Auto) % Baso % (Auto) % Neut # (Auto) (1.40-6.50) K/uL Lymph # (Auto) (1.20-3.40) K/uL Grady # (Auto) (0.11-0.59) K/uL Eos # (Auto) (0.00-0.50) K/uL Baso # (Auto) (0.00-0.20) K/uL Immature Gran # (Auto) (0.01-0.20) K/uL Sodium (136-145) mmol/L Potassium (3.5-5.1) mmol/L Chloride (98-107) mmol/L Carbon Dioxide (21-32) mmol/L Anion Gap (3-11) BUN (6-23) mg/dl Creatinine (0.6-1.4) mg/dl Est Cr Clr Drug Dosing ml/min eGFR BUN/Creatinine Ratio (10-20) Glucose (70-99(Fasting)) mg/dl Calcium (8.6-10.3) mg/dl Magnesium (1.7-2.4) mg/dl Total Bilirubin (0.2-1.0) mg/dl AST (13-39) U/L ALT (7-52) U/L Alkaline Phosphatase (34-104) U/L Total Protein (6.0-8.3) gm/dl Albumin (3.4-5.0) gm/dl Globulin (2.5-4.0) gm/dl Albumin/Globulin Ratio (0.9-2) Procalcitonin (0-0.5) ng/ml TSH Nasal Influ A H1 2008 PCR DETECTED A (NotDetected) Nasal Screen MRSA (PCR) Adenovirus (PCR) Not Detected (NotDetected) B. pertussis DNA (PCR) Not Detected (NotDetected) B.parapertussis DNA PCR Not Detected (NotDetected) C. pneumoniae DNA (PCR) Not Detected (NotDetected) Coronavirus OC43 (PCR) Not Detected (NotDetected) Coronavirus HKU1 (PCR) Not Detected (NotDetected) Coronavirus 229E (PCR) Not Detected (NotDetected) SARS-CoV-2 (PCR) Not Detected (NotDetected) Coronavirus NL63 (PCR) Not Detected (NotDetected) Human Metapneumovir PCR Not Detected (NotDetected) Influenza Type B (PCR) Not Detected (NotDetected) M. pneumoniae (PCR) Not Detected (NotDetected) Parainfluenza 1 (PCR) Not Detected (NotDetected) Parainfluenza 2 (PCR) Not Detected (NotDetected) Parainfluenza 3 (PCR) Not Detected (NotDetected) Parainfluenza 4 (PCR) Not Detected (NotDetected) RSV (PCR) Not Detected (NotDetected) Entero/Rhino (PCR) Not Detected (NotDetected) Diagnostic Findings Chest X-Ray 06/07/24 15:01 XR chest 1V not portable CLINICAL HISTORY: Weakness COMPARISON STUDY: 09/03/2018 FINDINGS: Heart size and pulmonary vasculature are normal. There is aortic tortuosity. No effusion, consolidation, or pneumothorax seen. There are a few old healed right rib fractures. IMPRESSION: No acute findings. ACT 112: Negative or not required by law. Electronically signed by: Nilton Thacker M.D. 06/07/2024 4:04 PM Abdomen/Pelvis CT 06/07/24 16:20 Clinical History: Diarrhea. Decreased appetite Technique: Axial computed tomography images were obtained of the abdomen and pelvis without intravenous contrast. Comparison is made to the chest CT dated 09/03/2018 Findings: The liver is overall of normal size, attenuation, and contour with no sign of cirrhosis or significant fatty infiltration. No definite liver mass lesion is seen on this noncontrast study. The gallbladder appears unremarkable. No bile duct dilatation is noted. The spleen is of normal size. No focal splenic lesion is evident. The pancreas appears normal with no sign of acute or chronic pancreatitis and no mass lesion noted. The pancreatic duct is of normal caliber. The adrenal glands appear unremarkable. No renal or proximal ureteral calculi are seen. There is no hydronephrosis or perinephric stranding. No definite renal mass lesion is identified. There is a 1.6 cm right renal cyst as well as a 1.3 cm right renal cyst There is a mild infrarenal abdominal aortic aneurysm, measuring up to 3.3 cm. No abdominal adenopathy is seen. The stomach appears normal. There is no sign of small bowel obstruction. The colon appears unremarkable. The appendix appears normal also. No free intraperitoneal fluid or air is identified. No distal ureteral or bladder calculi are seen. No obvious bladder mass lesion is evident. 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 No pelvic adenopathy is noted. There are radiotherapy implant seeds within the prostate. There are small bilateral inguinal hernias containing any fat There is unchanged pleural thickening in the right lung base. There are new multifocal centrilobular interstitial and nodular opacities in the lung bases bilaterally, most likely due to bronchopneumonia. The visualized descending thoracic aorta is mildly aneurysmal, measuring 3.1 cm. There is coronary atherosclerosis Lumbar degenerative disc disease is seen. No fracture is identified. No focal osseous lesion is seen Impression: 1. Bilateral bronchopneumonia 2. Mild thoracic aortic aneurysm and mild abdominal aortic aneurysm. 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 Small right renal cysts 4. Small bilateral inguinal hernias containing only fat ACT 112: Positive. There are findings on this exam that require communication between the performing entity and the patient following Patient Test Result Information Act ([place] ACT 112) guidelines. Electronically signed by Terry Corbett 06-07-2024 4:53 PM PG Care Time/CCT Total # of Minutes Spent Total Time Spent with Patient: Total time spent is greater than 50% in coordination of care (as documented) at patient's floor/unit and/or counseling patient: Coding Level of Care Code 07388 INT INP/OBS CARE 375MIN Diagnoses Pneumonia J18.9 Influenza J11.1 Acute kidney injury N17.9 Acute hyponatremia E87.1 Acute dehydration E86.0 Chronic kidney disease, stage 4 (severe) N18.4
[2024-06-07] MEDS: cefTRIAXone SODIUM 2,000 MG/50 ML BAG IV STA (18:13)
[2024-06-07] MEDS: OSELTAMIVIR PHOSPHATE 75 MG CAP PO STA (18:14)
[2024-06-07 18:34] LABS: Thyroid Stimulating Hormone 0.863 uIu/ml (0.300-4.500)
[2024-06-07] MEDS: DOXYCYCLINE HYCLATE 100 MG in DEXTROSE 5% MINI-B 100 ML IV STA (19:01)
[2024-06-07] MEDS: D5W IV SCH (21:40)
[2024-06-07] MEDS: SODIUM BICARBONATE IV SCH (21:40)
[2024-06-07] MEDS: [UNRECOGNIZED DRUG - OTHER] IV SCH (21:40)
[2024-06-07] MEDS: HEPARIN SOD 5,000 UNIT/0.5 ML VIAL SQ SCH (21:54)
[2024-06-07] MEDS: buPROPion SR 150 MG TABCR PO SCH (21:55)
[2024-06-07 22:03] LABS: Appearance Urine Clear (Clear); Bacteria Urine Automated None Seen (None Seen); Bilirubin Urine Negative (Negative); Blood Urine 2+ (Negative); Cast Urine Automated 0-2 /lpf (0-2); Color Urine Yellow; Epithelial Cell Urine Auto 0-2 /hpf (0-2); Glucose Urine UA Trace (Negative); Ketones Urine Negative (Negative); Leukocyte Esterase Urine 1+ (Negative); Nitrite Urine Negative (Negative); Protein Urine 1+ (Negative); RBC Urine Automated 0-2 /hpf (0-2); Specific Gravity Urine 1.008 (1.000-1.030); Urobilinogen Urine Negative (Negative); WBC Urine Automated 0-5 /hpf (0-5)
[2024-06-08] MEDS: DOXYCYCLINE HYCLATE 100 MG in DEXTROSE 5% MINI-B 100 ML IV SCH (06:28)
--- NOTE | 2024-06-08 07:29 | Hospitalist Progress Note ---
Date of Service June 08, 2024 Assessment & Plan (1) Pneumonia: Plan: 83yo admitted for PHI/hyponatremia and found to have +flu/bilateral pneumonia, concerns for bacteremia/sepsis w/ PHI and Na 128 and procal 4.2 IMPROVING- Stable on RA, 98% WBC normalized, afebrile. Continues on Ceftriaxone, Doxy (MRSA nares neg) Blood cultures pending Remains on Tamiflu for +influenza testing, renal dosed per discussion w/ pharmacy Continue pulmonary toilet, duonebs as needed, incentive spirometer. Mucinex deferred w/ renal impairment IVF as outlined below for PHI on CKD 2nd to influenza/dehydration/home meds Heparin SQ for DVT proph PT/OT consults pending Monitor labs/exam in AM *notable does have hx COPD/emphysema per PCP note, smoking hx but quit 2020. Also notes ascending thoracic aorta and dilatation of descending aorta 3.6cm which does not appear significantly changed on admission imaging (2) Influenza: Plan: +flu testing, tamiflu 75mg PO x 1 in ER, renal dosed and plan 5 day course Isolation precautions, abx for superimposed pneumonia as above and supportive care, pulmonary toilet (3) Acute kidney injury: Plan: Cr 7.4 from 2-3 baseline, follows w/ Dr Waters. CTAP no obstruction. Pt does NOT want HD CTAP on admission without obstruction IVF changed from NS@125cc/hr ordered by ER to include bicarb for elevated anion gap/acidosis w/ CO2 16 on chemistries - suspected 2nd to illness/poor PO intake/diarrhea in setting renal impairment at baseline CO2 remains 16, no further diarrhea but changed IVF for AGA to D5 +150meq bicarb and will adjust pending repeat chemistries UOP 1950cc, no bautista per patient and will monitor strict I&O, reports filling jug 3x already this morning. BS as needed Hold lisinopril (notes reduction from 40 to 20 this year) as well as dapagliflozin and suspect made worse w/ other sxs Note did check CK w/ elevated AST/ALT and mild elevation to 1784 and will monitor in AM Nephrology consulted, appreciate recs/assistance Renal dose meds/avoid toxins BMP in AM (4) Acute hyponatremia: Plan: Na 128 on admit-suspected 2nd to poor po intake/dehydration/diarrhea as well as acute infection w/ flu and pneumonia but also could be 2nd to sepsis/bacteremia. TSH wnl. IVF as outlined, changed for ongoing AGA but Na improved to 131 and PO intake improved/encouraged BMP in AM (5) Acute dehydration: Plan: Improving, improved PO intake/no further diarrhea and IVF continued for above (6) Chronic kidney disease, stage 4 (severe): Plan: as above - nephrology consulted/IVF adjustment and does not want HD per patient. Notable does have hx prostate ca/no longer follows w/ urology for undetectable PSA and CTAP no issues (7) Elevated CK: Plan: ck checked given elevated AST/ALT w/ renal impairment and was elevated to 1784, mild rhabdo from dehydration and IVF ordered as above and will monitor tomorrow to ensure resolved Plan DVT proph: heparin SQ BID Dispo: continued inpatient stay through the weekend and monitoring renal function for recovery and remains on abx for PNA/flu. PT/OT consults pending and updated family at bedside Admission and Anticipated Discharge Date Admission Date: June 07, 2024 Subjective Patient evaluated this morning, family in room. Bautista not placed but filled the jug 3 times per patient. Tolerating PO. No further diarrhea. Seen by nephrology this morning and aware will be here through the weekend. Breathing stable. No CP/increased SOB. Family updated on plan and IVF changed and continued monitoring of renal function. Reports did decrease his lisinopril from 40mg to 20mg w/ nephro and discussed BP stable at present and will monitor but can add meds like amlodipine if needed and resumption of RUDY TBD but at present would avoid. Dapafliflozin remains on hold as well. Questions/concerns addressed at this time. Requesting some coffee. Discussed with nursing for STRICT I&O and bladder scan. Physical Exam 2 Physical Exam: General: 83yo sitting up in bed, family at bedside, NAD HEENT: head atraumatic, normocephalic, cataracts, mm improving, HARD OF HEARING at baseline Resp: bibasilar crackles/rales, no overt wheezing/tachypnea, occ cough, on ROOM AIR 98% CV: RRR, no significant m/r/g, no pitting edema/calf tenderness GI: +BS, soft/no overt tenderness/guarding MSK/Neuro: generalized weakness but nonfocal, not confused, answering questions appropriately b/l LE abrasions, no cellulitis/drainage Psych: AOx3, cooperative with exam Results & Data Results & Data Vital Signs (Past 12 Hours) Vital Signs Temp Pulse Pulse Resp BP BP Pulse Ox 06/08/24 07:00 72 06/08/24 03:23 36.2 C L 80 18 108/68 95 06/07/24 21:45 83 06/07/24 21:31 87 06/07/24 21:19 36.5 C 92 H 18 129/71 95 06/07/24 21:15 06/07/24 20:30 81 20 115/73 95 06/07/24 20:01 80 20 129/78 96 O2 Del Method 06/08/24 07:00 06/08/24 03:23 Room Air 06/07/24 21:45 06/07/24 21:31 06/07/24 21:19 Room Air 06/07/24 21:15 Room Air 06/07/24 20:30 06/07/24 20:01 Laboratory Results 06/08/24 07:09 06/08/24 07:09 Diagnostic Findings Chest X-Ray 06/07/24 15:01 XR chest 1V not portable CLINICAL HISTORY: Weakness COMPARISON STUDY: 09/03/2018 FINDINGS: Heart size and pulmonary vasculature are normal. There is aortic tortuosity. No effusion, consolidation, or pneumothorax seen. There are a few old healed right rib fractures. IMPRESSION: No acute findings. ACT 112: Negative or not required by law. Electronically signed by: Nilton Thacker M.D. 06/07/2024 4:04 PM Abdomen/Pelvis CT 06/07/24 16:20 Clinical History: Diarrhea. Decreased appetite Technique: Axial computed tomography images were obtained of the abdomen and pelvis without intravenous contrast. Comparison is made to the chest CT dated 09/03/2018 Findings: The liver is overall of normal size, attenuation, and contour with no sign of cirrhosis or significant fatty infiltration. No definite liver mass lesion is seen on this noncontrast study. The gallbladder appears unremarkable. No bile duct dilatation is noted. The spleen is of normal size. No focal splenic lesion is evident. The pancreas appears normal with no sign of acute or chronic pancreatitis and no mass lesion noted. The pancreatic duct is of normal caliber. The adrenal glands appear unremarkable. No renal or proximal ureteral calculi are seen. There is no hydronephrosis or perinephric stranding. No definite renal mass lesion is identified. There is a 1.6 cm right renal cyst as well as a 1.3 cm right renal cyst There is a mild infrarenal abdominal aortic aneurysm, measuring up to 3.3 cm. No abdominal adenopathy is seen. The stomach appears normal. There is no sign of small bowel obstruction. The colon appears unremarkable. The appendix appears normal also. No free intraperitoneal fluid or air is identified. No distal ureteral or bladder calculi are seen. No obvious bladder mass lesion is evident. 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 No pelvic adenopathy is noted. There are radiotherapy implant seeds within the prostate. There are small bilateral inguinal hernias containing any fat There is unchanged pleural thickening in the right lung base. There are new multifocal centrilobular interstitial and nodular opacities in the lung bases bilaterally, most likely due to bronchopneumonia. The visualized descending thoracic aorta is mildly aneurysmal, measuring 3.1 cm. There is coronary atherosclerosis Lumbar degenerative disc disease is seen. No fracture is identified. No focal osseous lesion is seen Impression: 1. Bilateral bronchopneumonia 2. Mild thoracic aortic aneurysm and mild abdominal aortic aneurysm. 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 Small right renal cysts 4. Small bilateral inguinal hernias containing only fat ACT 112: Positive. There are findings on this exam that require communication between the performing entity and the patient following Patient Test Result Information Act ([place] ACT 112) guidelines. Electronically signed by Terry Corbett 06-07-2024 4:53 PM PG Care Time/CCT Total # of Minutes Spent Total Time Spent with Patient: Total time spent is greater than 50% in coordination of care (as documented) at patient's floor/unit and/or counseling patient: Coding Level of Care Code 87207 SUB INP/OBS CARE 3/50MIN Diagnoses Pneumonia J18.9 Influenza J11.1 Acute kidney injury N17.9 Acute hyponatremia E87.1 Acute dehydration E86.0 Chronic kidney disease, stage 4 (severe) N18.4 Elevated CK R74.8
[2024-06-08 07:35] LABS: Hematocrit (blood only) 27.5 % (42.0-52.0); Hemoglobin 9.5 g/dl (14.0-18.0); Mean Corpuscular Hemoglobin 30.7 pg (25.0-34.0); Mean Corpuscular Hgb Conc 34.5 g/dL (32.0-36.0); Mean Platelet Volume 10.9 fL (9.4-12.4); Platelet Count 179 K/uL (130-400); RDW Coefficient of Variation 14.3 % (11.5-14.5); Red Blood Count 3.09 M/uL (4.70-6.10); White Blood Count 8.81 K/ul (4.8-10.8)
[2024-06-08 07:52] LABS: Basophils # (auto) 0.02 K/uL (0.00-0.20); Basophils % (auto) 0.2 %; Echinocytes 1+; Eosinophils # (auto) 0.02 K/uL (0.00-0.50); Eosinophils % (auto) 0.2 %; Immature Granulocytes # (auto) 0.51 K/uL (0.01-0.20); Immature Granulocytes % (auto) 5.8 %; Lymphocytes # (auto) 1.47 K/uL (1.20-3.40); Lymphocytes % (auto) 16.7 %; Monocytes # (auto) 0.93 K/uL (0.11-0.59); Monocytes % (auto) 10.6 %; Neutrophils # (auto) 5.86 K/uL (1.40-6.50); Neutrophils % (auto) 66.5 %; Polychromasia 1+
[2024-06-08 08:03] LABS: Albumin Level 3.1 gm/dl (3.4-5.0); BUN Creatinine Ratio 14.4 (10-20); Bilirubin,Total 0.2 mg/dl (0.2-1.0); Calcium 8.1 mg/dl (8.6-10.3); Magnesium 1.7 mg/dl (1.7-2.4); Potassium 3.8 mmol/L (3.5-5.1); Total Protein 6.1 gm/dl (6.0-8.3)
[2024-06-08] MEDS: CHOLECALCIFEROL 25 MCG (1000 UNITS) TAB PO SCH (08:18)
[2024-06-08] MEDS ORDERED: STAT IV/IM STA (08:26)
[2024-06-08] MEDS ORDERED: OSELTAMIVIR PHOSPHATE SUSP 30 MG/5 ML UDP PO SCH (09:00)
--- NOTE | 2024-06-08 09:18 | Nephrology Consultation ---
Date of Consultation June 08, 2024 Assessment & Plan (1) Acute kidney injury: * Nonoliguric PHI due to influenza, dehydration * Urine sediment is negative for blood or casts * Noncontrast abdominal CT this hospitalization is negative for hydronephrosis * Patient has high AGA. Agree w/ cautious hydration using bicarbonate solution * Monitor BMP * Discussed possibility of CARE DIRECTOR w/ patient today. 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 Baseline Cr has recently risen to 3.4 (3) Influenza: * Recommend consultation w/ pharmacy for oseltamivir dosing since renal function is not in steady state. Suspect patient only requires Oseltamivir 30 mg weekly due to PHI/CKD (4) Pneumonia: * On ceftriaxone, doxycycline History of Present Illness Reason for Consultation: PHI/CKD Attending Physician: Abiola Nick MD History of Present Illness Mr. Baker is an 83 year old white male who is seen at the request of the [facility] hospitalist service for evaluation of PHI/CKD. Information for the HPI is obtained from direct patient interview and review of the EMR. HPI is summarized as follows: Mr. 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 His baseline Cr has recently risen to 3.4. His primary mortgage protection sales is Dr. Waters. As an outpatient he has been managed w/ l isinopril and dapagliflozin. Mr. Baker presented to [facility] 06/07/24 with complaints of weakness. Evaluation has revealed influenza A+, bilateral LL bronchopneumonia and PHI w/ Cr 7.23. Mr. Baker has been admitted for IV hydration and antibiotic therapy. 06/07/[address] was negative for hydronephrosis. Primary service has held lisinopril and dapagliflozin. Mr. Baker readily acknowledges that he has discussed CARE DIRECTOR w/ Dr. Waters in the past. He reaffirms that he does not want dialysis. He is very anxious to return home. Allergies Allergy/AdvReac Type Severity Reaction Status Date / Time No Known Allergies Allergy Verified 06/07/24 17:17 Home Medications Medication Instructions Recorded Confirmed Type bupropion HCl 150 mg tablet,12 hr 150 mg PO HS #90 ea 01/25/24 06/07/24 Rx sustained-release cholecalciferol (vitamin D3) 25 2,000 unit PO QAM #90 caps 01/25/24 06/07/24 Rx mcg (1,000 unit) capsule (Vitamin D3) lisinopril 20 mg tablet 20 mg PO QAM #90 tabs 04/09/24 06/07/24 Rx atorvastatin 20 mg tablet 20 mg PO HS #90 tabs 05/07/24 06/07/24 Rx dapagliflozin propanediol 10 mg 10 mg PO DAILY #90 tabs 05/09/24 06/07/24 Rx tablet Patient History Medical History History of brachytherapy (~2009) Surgical History History of cataract surgery right History of colonoscopy H/O tooth extraction Family History Mother Diabetes Father Unknown family medical history Brother Stroke Brother Unknown family medical history Brother Unknown family medical history Sister Unknown family medical history Sister Unknown family medical history Other Hypertension No family history of adverse response to anesthesia No pertinent family history Denies family history of Ovarian cancer Prostate cancer Coronary heart disease Myocardial infarction Breast cancer Colorectal cancer Social History Smoking Status: Former smoker Tobacco Type: Cigarettes Age Started Using Tobacco: 32; Age Quit Using Tobacco: 80; packs per day: 0.5; Second Hand Exposure: Yes (hx); Do You Dip or Chew Tobacco: No; Hx Alcohol Use: Yes Alcohol type: beer Alcohol Intake Frequency: 4 or More x per/Week Hx Substance Use: No Preferred Language: Tunisian Communication Ability: Effective Communication Ability Comment: Patient is [place] Visual Impairment: No Limitations Hearing Ability: Use of Hearing Aid Lehr Stripper Required: No Beliefs That Will Affect Care: None marital status: / Current Living Situation: Alone current occupational status: retired current occupation: [employer] Other Information That Helps Us Care for You: No Feels Safe at Home: Yes Safety Concerns: Feels Safe At This Time Childhood Exposure to Second-Hand Smoke: Yes Diet: regular caffeine: Yes during the past year weight has: remained stable Dental Care, Regularly: No Physical Activity Frequency: Daily Seatbelt Use: always Sunscreen Use: No Do you think of yourself as: straight/heterosexual Gender Identity: Male Assistive Devices: Denture - Upper, Denture - Lower, Glasses and Hearing Aid - Bilateral Review of Systems Constitutional: + fatigue; no fever Eyes: no problem reported Ear, Nose, Mouth, Throat: no problem reported Respiratory: no cough and no dyspnea Cardiovascular: no chest pain Gastrointestinal: no abdominal pain, no nausea, no vomiting and no diarrhea/loose stools Genitourinary: no dysuria or no hematuria Musculoskeletal: no back pain Integumentary: no rash Physical Exam Constitutional: not in distress Eyes: PERRL, conjunctivae normal, anicteric sclerae ENMT: external ear and nose normal, oropharynx normal Neck: trachea midline, no thyromegaly Respiratory: normal respiratory effort Auscultation: + diminished lung sounds (at bases bilaterally) Cardiovascular: RRR, no murmur, no edema Gastrointestinal (Abdomen): normal bowel sounds, soft, nontender, no hepatosplenomegaly Musculoskeletal: Extremities: no cyanosis and no clubbing Skin: no rashes, warm and dry Neurologic: awake (K[place]) Results & Data Vital Signs (Past 12 Hours) Vital Signs Temp Pulse Pulse Resp BP BP Pulse Ox 06/08/24 07:48 36.6 C 73 16 109/69 96 06/08/24 07:00 72 06/08/24 03:23 36.2 C L 80 18 108/68 95 06/07/24 21:45 83 06/07/24 21:31 87 06/07/24 21:19 36.5 C 92 H 18 129/71 95 O2 Del Method 06/08/24 07:48 Room Air 06/08/24 07:00 06/08/24 03:23 Room Air 06/07/24 21:45 06/07/24 21:31 06/07/24 21:19 Room Air Laboratory Results Laboratory Results WBC 8.81 K/ul (4.8-10.8) 06/08/24 07:09 RBC 3.09 M/uL (4.70-6.10) L 06/08/24 07:09 Hgb 9.5 g/dl (14.0-18.0) L 06/08/24 07:09 Hct 27.5 % (42.0-52.0) L 06/08/24 07:09 MCV 89.0 fL (80.0-100.0) 06/08/24 07:09 MCH 30.7 pg (25.0-34.0) 06/08/24 07:09 MCHC 34.5 g/dL (32.0-36.0) 06/08/24 07:09 RDW Std Deviation 46.0 fL (36.4-46.3) 06/08/24 07:09 RDW Coeff of Perez 14.3 % (11.5-14.5) 06/08/24 07:09 Plt Count 179 K/uL (130-400) 06/08/24 07:09 MPV 10.9 fL (9.4-12.4) 06/08/24 07:09 Immature Gran % (Auto) 5.8 % 06/08/24 07:09 Neut % (Auto) 66.5 % 06/08/24 07:09 Lymph % (Auto) 16.7 % 06/08/24 07:09 Garden % (Auto) 10.6 % 06/08/24 07:09 Eos % (Auto) 0.2 % 06/08/24 07:09 Baso % (Auto) 0.2 % 06/08/24 07:09 Neut # (Auto) 5.86 K/uL (1.40-6.50) 06/08/24 07:09 Lymph # (Auto) 1.47 K/uL (1.20-3.40) 06/08/24 07:09 Garden # (Auto) 0.93 K/uL (0.11-0.59) H 06/08/24 07:09 Eos # (Auto) 0.02 K/uL (0.00-0.50) 06/08/24 07:09 Baso # (Auto) 0.02 K/uL (0.00-0.20) 06/08/24 07:09 Immature Gran # (Auto) 0.51 K/uL (0.01-0.20) H 06/08/24 07:09 Polychromasia 1+ 06/08/24 07:09 Echinocytes 1+ 06/08/24 07:09 Sodium 131 mmol/L (136-145) L 06/08/24 07:09 Potassium 3.8 mmol/L (3.5-5.1) 06/08/24 07:09 Chloride 103 mmol/L (98-107) 06/08/24 07:09 Carbon Dioxide 16 mmol/L (21-32) L 06/08/24 07:09 Anion Gap 12 (3-11) H 06/08/24 07:09 BUN 98 mg/dl (6-23) H 06/08/24 07:09 Creatinine 6.80 mg/dl (0.6-1.4) H* D 06/08/24 07:09 Est Cr Clr Drug Dosing 8.0 ml/min 06/08/24 07:09 eGFR 7.58 06/08/24 07:09 BUN/Creatinine Ratio 14.4 (10-20) 06/08/24 07:09 Glucose 120 mg/dl (70-99(Fasting)) H 06/08/24 07:09 Lactate 0.7 mmol/L (0.4-2.0) 06/07/24 19:06 Calcium 8.1 mg/dl (8.6-10.3) L 06/08/24 07:09 Magnesium 1.7 mg/dl (1.7-2.4) 06/08/24 07:09 Total Bilirubin 0.2 mg/dl (0.2-1.0) 06/08/24 07:09 AST 64 U/L (13-39) H 06/08/24 07:09 ALT 47 U/L (7-52) 06/08/24 07:09 Alkaline Phosphatase 46 U/L (34-104) 06/08/24 07:09 Total Creatine Kinase 1784 U/L (30-223) H 06/07/24 15:03 Total Protein 6.1 gm/dl (6.0-8.3) 06/08/24 07:09 Albumin 3.1 gm/dl (3.4-5.0) L 06/08/24 07:09 Globulin 3.0 gm/dl (2.5-4.0) 06/08/24 07:09 Albumin/Globulin Ratio 1.0 (0.9-2) 06/08/24 07:09 Procalcitonin 4.20 ng/ml (0-0.5) H 06/07/24 15:06 TSH 0.863 uIu/ml (0.300-4.500) 06/07/24 15:03 Urine Color Yellow 06/07/24 Unknown Urine Appearance Clear (Clear) 06/07/24 Unknown Urine pH 5.0 (4.5-7.5) 06/07/24 Unknown Ur Specific [place] 1.008 (1.000-1.030) 06/07/24 Unknown Urine Protein 1+ (Negative) H 06/07/24 Unknown Urine Glucose (UA) Trace (Negative) H 06/07/24 Unknown Urine Ketones Negative (Negative) 06/07/24 Unknown Urine Blood 2+ (Negative) H 06/07/24 Unknown Urine Nitrite Negative (Negative) 06/07/24 Unknown Urine Bilirubin Negative (Negative) 06/07/24 Unknown Urine Urobilinogen Negative (Negative) 06/07/24 Unknown Ur Leukocyte Esterase 1+ (Negative) H 06/07/24 Unknown Urine WBC (Auto) 0-5 /hpf (0-5) 06/07/24 Unknown Urine RBC (Auto) 0-2 /hpf (0-2) 06/07/24 Unknown U Hyaline Cast (Auto) 0-2 /lpf (0-2) 06/07/24 Unknown U Epithel Cells (Auto) 0-2 /hpf (0-2) 06/07/24 Unknown Urine Bacteria (Auto) None Seen (None Seen) 06/07/24 Unknown Nasal Influ A H1 2008 PCR DETECTED (NotDetected) A 06/07/24 15:00 Nasal Screen MRSA (PCR) Negative (Negative) 06/07/24 18:10 Adenovirus (PCR) Not Detected (NotDetected) 06/07/24 15:00 B. pertussis DNA (PCR) Not Detected (NotDetected) 06/07/24 15:00 B.parapertussis DNA PCR Not Detected (NotDetected) 06/07/24 15:00 C. pneumoniae DNA (PCR) Not Detected (NotDetected) 06/07/24 15:00 Coronavirus OC43 (PCR) Not Detected (NotDetected) 06/07/24 15:00 Coronavirus HKU1 (PCR) Not Detected (NotDetected) 06/07/24 15:00 Coronavirus 229E (PCR) Not Detected (NotDetected) 06/07/24 15:00 SARS-CoV-2 (PCR) Not Detected (NotDetected) 06/07/24 15:00 Coronavirus NL63 (PCR) Not Detected (NotDetected) 06/07/24 15:00 Human Metapneumovir PCR Not Detected (NotDetected) 06/07/24 15:00 Influenza Type B (PCR) Not Detected (NotDetected) 06/07/24 15:00 M. pneumoniae (PCR) Not Detected (NotDetected) 06/07/24 15:00 Parainfluenza 1 (PCR) Not Detected (NotDetected) 06/07/24 15:00 Parainfluenza 2 (PCR) Not Detected (NotDetected) 06/07/24 15:00 Parainfluenza 3 (PCR) Not Detected (NotDetected) 06/07/24 15:00 Parainfluenza 4 (PCR) Not Detected (NotDetected) 06/07/24 15:00 RSV (PCR) Not Detected (NotDetected) 06/07/24 15:00 Entero/Rhino (PCR) Not Detected (NotDetected) 06/07/24 15:00 Impressions Chest X-Ray 06/07/24 15:01 XR chest 1V not portable CLINICAL HISTORY: Weakness COMPARISON STUDY: 09/03/2018 FINDINGS: Heart size and pulmonary vasculature are normal. There is aortic tortuosity. No effusion, consolidation, or pneumothorax seen. There are a few old healed right rib fractures. IMPRESSION: No acute findings. ACT 112: Negative or not required by law. Electronically signed by: Nilton Thacker M.D. 06/07/2024 4:04 PM Abdomen/Pelvis CT 06/07/24 16:20 Clinical History: Diarrhea. Decreased appetite Technique: Axial computed tomography images were obtained of the abdomen and pelvis without intravenous contrast. Comparison is made to the chest CT dated 09/03/2018 Findings: The liver is overall of normal size, attenuation, and contour with no sign of cirrhosis or significant fatty infiltration. No definite liver mass lesion is seen on this noncontrast study. The gallbladder appears unremarkable. No bile duct dilatation is noted. The spleen is of normal size. No focal splenic lesion is evident. The pancreas appears normal with no sign of acute or chronic pancreatitis and no mass lesion noted. The pancreatic duct is of normal caliber. The adrenal glands appear unremarkable. No renal or proximal ureteral calculi are seen. There is no hydronephrosis or perinephric stranding. No definite renal mass lesion is identified. There is a 1.6 cm right renal cyst as well as a 1.3 cm right renal cyst There is a mild infrarenal abdominal aortic aneurysm, measuring up to 3.3 cm. No abdominal adenopathy is seen. The stomach appears normal. There is no sign of small bowel obstruction. The colon appears unremarkable. The appendix appears normal also. No free intraperitoneal fluid or air is identified. No distal ureteral or bladder calculi are seen. No obvious bladder mass lesion is evident. 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 No pelvic adenopathy is noted. There are radiotherapy implant seeds within the prostate. There are small bilateral inguinal hernias containing any fat There is unchanged pleural thickening in the right lung base. There are new multifocal centrilobular interstitial and nodular opacities in the lung bases bilaterally, most likely due to bronchopneumonia. The visualized descending thoracic aorta is mildly aneurysmal, measuring 3.1 cm. There is coronary atherosclerosis Lumbar degenerative disc disease is seen. No fracture is identified. No focal osseous lesion is seen Impression: 1. Bilateral bronchopneumonia 2. Mild thoracic aortic aneurysm and mild abdominal aortic aneurysm. 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 Small right renal cysts 4. Small bilateral inguinal hernias containing only fat ACT 112: Positive. There are findings on this exam that require communication between the performing entity and the patient following Patient Test Result Information Act ([place] ACT 112) guidelines. Electronically signed by Terry Corbett 06-07-2024 4:53 PM PG Care Time/CCT Total # of Minutes Spent Total Time Spent with Patient: Total time spent is greater than 50% in coordination of care (as documented) at patient's floor/unit and/or counseling patient: Coding Level of Care Code 92113 IN/OBS CONSULT LVL 5,80M Diagnoses Acute kidney injury N17.9 Chronic kidney disease, stage 4 (severe) N18.4 Influenza J11.1 Pneumonia J18.9
[2024-06-08] MEDS: MAGNESIUM SULFATE / D5W 1 GM/100 ML BAG IV ONE (09:43)
[2024-06-08] MEDS: SODIUM BICARBONATE 8.4% 150 MEQ in DEXTROSE 5% 1,000 ML IV SCH (09:44)
--- NOTE | 2024-06-08 12:47 | Electrocardiogram Report ---
Test Reason : Blood Pressure : */* mmHG Vent. Rate : 91 BPM Atrial Rate : 91 BPM P-R Int : 178 ms QRS Dur : 96 ms QT Int : 354 ms P-R-T Axes : 39 6 44 degrees QTcB Int : 435 ms Sinus rhythm with Premature ventricular complexes Poor R wave progression, consider anterior VA vs. lead placement vs. LVH Abnormal ECG When compared with ECG of 14-Apr-2022 08:17, Premature ventricular complexes now present Confirmed by Arun Syed ([id number]) on 06/08/2024 12:46:37 PM Referred By: REFERRED SELF Confirmed By: Arun Syed
[2024-06-08] MEDS: cefTRIAXone SODIUM 1,000 MG/50 ML BAG IV SCH (17:52)
[2024-06-09 07:10] LABS: Hematocrit (blood only) 26.5 % (42.0-52.0); Hemoglobin 9.3 g/dl (14.0-18.0); Mean Corpuscular Hemoglobin 30.9 pg (25.0-34.0); Mean Corpuscular Hgb Conc 35.1 g/dL (32.0-36.0); Mean Platelet Volume 10.5 fL (9.4-12.4); Platelet Count 191 K/uL (130-400); RDW Coefficient of Variation 13.9 % (11.5-14.5); RDW Standard Deviation 44.8 fL (36.4-46.3); Red Blood Count 3.01 M/uL (4.70-6.10); White Blood Count 7.78 K/ul (4.8-10.8)
--- NOTE | 2024-06-09 07:37 | Hospitalist Progress Note ---
Date of Service June 09, 2024 Assessment & Plan (1) Pneumonia: (2) Influenza: (3) Acute kidney injury: (4) Acute hyponatremia: (5) Acute dehydration: (6) Chronic kidney disease, stage 4 (severe): (7) Elevated CK: Plan 83yo admitted for PHI/hyponatremia and found to have +flu/bilateral pneumonia on chest imaging, concerns for bacteremia/sepsis w/ PHI and Na 128 and procal 4.2 #Pneumonia, Influenza - IMPROVING, stable on room air. WBC normalized and remains on Ceftriaxone/Doxy, tamiflu for +influenza along with isolation precautions. 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 CTAP w/o obstruction. Patient does NOT want HD IVF hydration provided, switched to D5 + 150meq bicarb for AGA and Cr down to 5.52. Bladder scan for any retention but making good UOP (1950cc + 4750cc, ?autodiuresis from ATN) Nephrology on consult and following, rec to avoid further IVF for now and push PO hydration Lisinopril/dapagliflozin remain on hold, tamiflu renal dosed and avoid nephrotoxins and monitor BMP in AM #Hyponatremia -- in setting of above and poor PO intake/infection IVF provided and abx for infection and stable 138 today #Elevated CK/mild rhabdo- suspect 2nd to poor PO intake/acute illness and ongoing statin use. Statin has been on hold and IVF as above provided w/ CK down to 472 and will remain OFF statin at this time and PO hydration as above #HTN On lisinopril at baseline w/ recent reduction in setting renal insufficiency. Lisinopril held as outlined above and BP stable and monitor for further reduction at dc vs stopping. Could use amlodipine vs other if needed for BP DVT proph: heparin SQ in setting PHI Dispo: continued inpatient stay, nephrology following and possible dc next day or so depending where renal function settles but possible may be in 4-5 range given advance age/insult but will monitor PT/OT consulted Family updated via phone today and will be in this afternoon Admission and Anticipated Discharge Date Admission Date: June 07, 2024 Subjective Eval this morning around 11, urinal FULL clear yellow urine. Good PO fluid intake, appetite ok but coming back. Wanting a shower, order in place. Reports his son will be here shortly. Discussed still w/ some rales in bases, continues abx. Cr much improved and avoiding IVF but remains off usual meds/monitoring. Questions/concerns addressed at this time. Physical Exam 2 Physical Exam: General: 83yo sitting up in bed, appears MUCH improved, NAD, would like ot shower HEENT: head atraumatic, normocephalic, cataracts, mm improved, PO hydratoin encouraged, HARD OF HEARING at baseline Resp: bibasilar crackles/rales persist but no overt wheezing/tachypnea, occ cough, on ROOM AIR CV: RRR, no significant m/r/g, no pitting edema/calf tenderness GI: +BS, soft/no overt tenderness/guarding : urinal FULL, clear yellow urine MSK/Neuro: generalized weakness but nonfocal, not confused, answering questions appropriately b/l LE abrasions, no cellulitis/drainage Psych: AOx3, cooperative with exam Results & Data Results & Data Vital Signs (Past 12 Hours) Vital Signs Temp 36.7 C 06/09/24 11:50 Pulse 75 06/09/24 11:50 Resp 18 06/09/24 11:50 BP 115/70 06/09/24 11:50 Pulse Ox 97 06/09/24 11:50 O2 Del Method Room Air 06/09/24 11:50 Intake & Output 06/08/24 06/09/24 06/09/24 18:59 06:59 18:59 Intake Total 2455 / 4265 1810 / 4265 1350 / 1350 Output Total 2600 / 4750 2150 / 4750 Balance -145 / -485 -340 / -485 1350 / 1350 Intake: IV 1450 / 2700 1250 / 2700 1350 / 1350 Doxycycline Hyclate 100 mg In 100 / 200 100 / 200 100 / 100 Dextrose 5% Mini-B 100 ml @ 50 mls/hr IV Q12H [facility] Rx#:[id number] Magnesium Sulfate / D5w 1 gm In 100 / 100 100 / 100 100 ml @ 50 mls/hr IV ONE ONE Rx#:[id number] Sodium Bicarbonate 8.4% 50 meq 1200 / 1200 In D5w and 1/2Nss 1,000 ml @ 100 mls/hr IV .[id number] [facility] Rx#: [id number] Sodium Bicarbonate 8.4% 150 meq 1150 / 1150 1150 / 1150 In Dextrose 5% 1,000 ml @ 100 mls/hr IV .[id number] [facility] Rx#: [id number] [id number] SODIUM 1,000 mg In 50 / 50 50 ml @ 100 mls/hr IV Q24H [facility] Rx#:[id number] Oral 1005 / 1565 560 / 1565 Output: Urine 2600 / 4750 2150 / 4750 Laboratory Results 06/09/24 06:43 06/09/24 06:43 Mag 1.7 AST 43 CK 467 PG Care Time/CCT Total # of Minutes Spent Total Time Spent with Patient: Total time spent is greater than 50% in coordination of care (as documented) at patient's floor/unit and/or counseling patient: Coding Level of Care Code 28403 SUB INP/OBS CARE 3/50MIN Diagnoses Pneumonia J18.9 Influenza J11.1 Acute kidney injury N17.9 Acute hyponatremia E87.1 Acute dehydration E86.0 Chronic kidney disease, stage 4 (severe) N18.4 Elevated CK R74.8
[2024-06-09 07:39] LABS: Albumin Level 3.1 gm/dl (3.4-5.0); BUN Creatinine Ratio 16.1 (10-20); Bilirubin Direct 0.1 mg/dl (0-0.2); Bilirubin,Total 0.3 mg/dl (0.2-1.0); Calcium 8.3 mg/dl (8.6-10.3); Creatinine Clr Calc Pharmacy 9.8 ml/min; Magnesium 1.7 mg/dl (1.7-2.4); Potassium 3.2 mmol/L (3.5-5.1); Total Protein 5.9 gm/dl (6.0-8.3)
[2024-06-09] MEDS: OSELTAMIVIR PHOSPHATE SUSP 30 MG/5 ML UDP PO SCH (08:38)
--- NOTE | 2024-06-09 09:02 | Nephrology Progress Note ---
Date of Service June 09, 2024 Assessment & Plan (1) Acute kidney injury: Plan: * Nonoliguric PHI due to influenza, dehydration * Urine sediment is negative for blood or casts * Noncontrast abdominal CT this hospitalization is negative for hydronephrosis * AGA has closed. Stop IV NaHCO3 * Encourage oral hydration * Monitor BMP * Discussed possibility of SPECIAL EVENTS ASSISTANT w/ patient on admission. 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 Baseline Cr has recently risen to 3.4 (3) Influenza: Plan: * Recommend consultation w/ pharmacy for oseltamivir dosing since renal function is not in steady state. Suspect patient only requires Oseltamivir 30 mg weekly due to PHI/CKD (4) Pneumonia: Plan: * On ceftriaxone, doxycycline Admission and Anticipated Discharge Date Admission Date: June 07, 2024 Subjective Mr. Baker was evaluated in his hospital room this morning. He was breathing comfortably on RA and requests permission to take a shower Review of Systems Constitutional: no fever Eyes: no problem reported Ear, Nose, Mouth, Throat: no problem reported Respiratory: no cough and no dyspnea Cardiovascular: no chest pain Gastrointestinal: no abdominal pain, no nausea, no vomiting and no diarrhea/loose stools Genitourinary: no dysuria or no hematuria Musculoskeletal: no back pain Integumentary: no rash Physical Exam Constitutional: not in distress Eyes: PERRL, conjunctivae normal, anicteric sclerae ENMT: external ear and nose normal, oropharynx normal Neck: trachea midline, no thyromegaly Respiratory: normal respiratory effort Auscultation: + diminished lung sounds (at bases bilaterally) Cardiovascular: RRR, no murmur, no edema Gastrointestinal (Abdomen): normal bowel sounds, soft, nontender, no hepatosplenomegaly Musculoskeletal: Extremities: no cyanosis and no clubbing Skin: no rashes, warm and dry Neurologic: awake ([place]) Results & Data Vital Signs (Past 12 Hours) Vital Signs Temp Pulse Pulse Resp BP BP Pulse Ox 06/09/24 08:09 36.4 C L 48 L 20 131/67 93 06/09/24 07:00 68 06/09/24 02:56 66 18 110/65 98 06/08/24 22:32 36.6 C 74 18 121/75 94 06/08/24 22:03 06/08/24 21:44 80 O2 Del Method 06/09/24 08:09 Room Air 06/09/24 07:00 06/09/24 02:56 Room Air 06/08/24 22:32 Room Air 06/08/24 22:03 Room Air 06/08/24 21:44 Laboratory Results Laboratory Results - last 24 hr 06/09/24 06:43 WBC 7.78 RBC 3.01 L Hgb 9.3 L Hct 26.5 L MCV 88.0 MCH 30.9 MCHC 35.1 RDW Std Deviation 44.8 RDW Coeff of Perez 13.9 Plt Count 191 MPV 10.5 Sodium 138 Potassium 3.2 L Chloride 100 Carbon Dioxide 28 Anion Gap 10 BUN 89 H Creatinine 5.52 H* D Est Cr Clr Drug Dosing 9.8 eGFR 9.73 BUN/Creatinine Ratio 16.1 Glucose 118 H Calcium 8.3 L Magnesium 1.7 Total Bilirubin 0.3 Direct Bilirubin 0.1 AST 43 H ALT 40 Alkaline Phosphatase 45 Total Creatine Kinase 467 H Total Protein 5.9 L Albumin 3.1 L Vitamin B12 1466 H PG Care Time/CCT Total # of Minutes Spent Total Time Spent with Patient: Total time spent is greater than 50% in coordination of care (as documented) at patient's floor/unit and/or counseling patient: Coding Level of Care Code 07889 SUB INP/OBS CARE 3/50MIN Diagnoses Acute kidney injury N17.9 Chronic kidney disease, stage 4 (severe) N18.4 Influenza J11.1 Pneumonia J18.9
[2024-06-09] MEDS: POTASSIUM CHLORIDE 10 MEQ TABCR PO STA (09:56)
[2024-06-09] MEDS: MAGNESIUM SULFATE / D5W 1 GM/100 ML BAG IV ONE (09:57)
[2024-06-09] MEDS: MELATONIN 3 MG TAB PO PRN (23:25)
[2024-06-10] MEDS: MELATONIN 3 MG TAB PO ONE (05:02)
[2024-06-10 06:07] LABS: Hematocrit (blood only) 28.6 % (42.0-52.0); Hemoglobin 9.9 g/dl (14.0-18.0); Mean Corpuscular Hemoglobin 30.9 pg (25.0-34.0); Mean Corpuscular Hgb Conc 34.6 g/dL (32.0-36.0); Mean Corpuscular Volume 89.4 fL (80.0-100.0); Mean Platelet Volume 10.2 fL (9.4-12.4); Platelet Count 216 K/uL (130-400); RDW Coefficient of Variation 14.1 % (11.5-14.5); RDW Standard Deviation 46.1 fL (36.4-46.3); White Blood Count 8.28 K/ul (4.8-10.8)
[2024-06-10 06:27] LABS: BUN Creatinine Ratio 14.9 (10-20); Calcium 8.8 mg/dl (8.6-10.3); Creatinine Clr Calc Pharmacy 10.6 ml/min; Magnesium 1.9 mg/dl (1.7-2.4); Potassium 3.9 mmol/L (3.5-5.1)
--- NOTE | 2024-06-10 07:36 | Hospitalist Progress Note ---
Date of Service June 10, 2024 Assessment & Plan (1) Pneumonia: (2) Influenza: (3) Acute kidney injury: (4) Acute hyponatremia: (5) Acute dehydration: (6) Chronic kidney disease, stage 4 (severe): (7) Elevated CK: Plan 83yo admitted for PHI/hyponatremia and found to have +flu/bilateral pneumonia on chest imaging, concerns for bacteremia/sepsis w/ PHI and Na 128 and procal 4.2 #Pneumonia, Influenza - IMPROVING, WBC normalized/remains afebrile and remains on CTX/Doxy as well as renal dosed tamiflu (can dc after tomorrows dose for 5 day course) Continue incentive spirometer/pulmonary toilet and O2 if needed as well as duonebs but remains on RA. 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 Patient does NOT want HD CTAP w/o obstruction. No retention with bladder scan IVF hydration provided w 150meq bicarb and AGA resolved Nephrology consulted/following Home Lisinopril/dapagliflozin remain on hold and likely should remain on hold at dc and have close f/u with nephrology regarding resumption IF AT ALL Cr down to 5.1 from 5.5 and continues w/ oral hydration and making excellent UOP and suspect autodiuresis from ATN from infection/diarrhea/dehydration on admission and will defer IVF at this time Per nephrology, hopeful dc once Cr <4 BMP in AM #Hyponatremia -- in setting of above and poor PO intake/infection and diarrhea NETWORK SECURITY OFFICER. IVF provided and resolved/remains stable and good PO intake reported. #Elevated CK/mild rhabdo- suspect 2nd to poor PO intake/acute illness and ongoing statin use and statin on hold/CK down to 472 on repeat and likely could resume statin at dc given improvement PO intake. LFTs improved on repeat testing #HTN-On lisinopril at baseline w/ recent reduction in setting renal insufficiency. Lisinopril held as outlined above and BP stable and monitor for further reduction at dc vs stopping. Could use amlodipine vs other if needed for BP but stable 119/65 at present time DVT proph: heparin SQ in setting PHI and hgb stable/improved Dispo: continued inpatient stay monitoring renal function and discharge pending repeat renal function. Nephrology following and will need close f/u with Dr Waters at or PT/OT consulted and rec to return home with family support Updated son via phone this morning Admission and Anticipated Discharge Date Admission Date: June 07, 2024 Subjective Eval this morning, sitting up in bed. Making good urine. Needs to move bowels/medications ordered. Breathing stable, on room air. Faint bibasilar crackles and IS encouraged. Discussed BP great and likely will be continue to hold his usual meds at or but will touch base w/ nephrology. Hopefully or next 24-48hrs pending recovery of kidney. Physical Exam 2 Physical Exam: General: 83yo sitting up in bed, appears MUCH improved, NAD HEENT: head atraumatic, normocephalic, cataracts, mm improved, PO hydration encouraged, HARD OF HEARING at baseline Resp: bibasilar crackles persist but no overt wheezing/tachypnea, occ cough (none today), on ROOM AIR CV: RRR, no significant m/r/g, no pitting edema/calf tenderness GI: +BS, soft/no overt tenderness/guarding : using urinal, clear urine, no retention on BS MSK/Neuro: generalized weakness but nonfocal, not confused, answering questions appropriately b/l LE abrasions, no cellulitis/drainage Psych: AOx3, cooperative with exam Results & Data Results & Data Vital Signs (Past 12 Hours) Vital Signs Temp Pulse Pulse Resp BP BP Pulse Ox 06/10/24 07:22 36.6 C 77 16 119/65 95 06/10/24 07:00 73 06/10/24 03:44 36.5 C 68 17 117/70 96 06/09/24 23:11 36.5 C 71 17 128/74 95 06/09/24 21:46 70 06/09/24 20:00 O2 Del Method 06/10/24 07:22 Room Air 06/10/24 07:00 06/10/24 03:44 Room Air 06/09/24 23:11 Room Air 06/09/24 21:46 06/09/24 20:00 Room Air Laboratory Results 06/10/24 05:27 06/10/24 05:27 PG Care Time/CCT Total # of Minutes Spent Total Time Spent with Patient: Total time spent is greater than 50% in coordination of care (as documented) at patient's floor/unit and/or counseling patient: Coding Level of Care Code 99098 SUB INP/OBS CARE 3/50MIN Diagnoses Pneumonia J18.9 Influenza J11.1 Acute kidney injury N17.9 Acute hyponatremia E87.1 Acute dehydration E86.0 Chronic kidney disease, stage 4 (severe) N18.4 Elevated CK R74.8
--- NOTE | 2024-06-10 08:40 | Nephrology Progress Note ---
Date of Service June 10, 2024 Assessment & Plan (1) Acute kidney injury: Plan: * Nonoliguric PHI due to influenza, dehydration * Cr has improved from 7.3 to 5.11 * Urine sediment is negative for blood or casts * Noncontrast abdominal CT this hospitalization is negative for hydronephrosis * AGA has closed. Stop IV NaHCO3 * Encourage oral hydration * Monitor BMP * Discussed possibility of CERAMIC ARTIST w/ patient on admission. 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 Baseline Cr has recently risen to 3.4 (3) Influenza: Plan: * Remains on Oseltamivir therapy (4) Pneumonia: Plan: * On ceftriaxone, doxycycline Admission and Anticipated Discharge Date Admission Date: June 07, 2024 Subjective Mr. Baker was evaluated in his hospital room this morning. He was breathing comfortably on RA. He is subjectively improved Review of Systems Constitutional: no fever Eyes: no problem reported Ear, Nose, Mouth, Throat: no problem reported Respiratory: no cough and no dyspnea Cardiovascular: no chest pain Gastrointestinal: no abdominal pain, no nausea, no vomiting and no diarrhea/loose stools Genitourinary: no dysuria or no hematuria Musculoskeletal: no back pain Integumentary: no rash Physical Exam Constitutional: not in distress Eyes: PERRL, conjunctivae normal, anicteric sclerae ENMT: external ear and nose normal, oropharynx normal Neck: trachea midline, no thyromegaly Respiratory: normal respiratory effort Auscultation: + diminished lung sounds (at bases bilaterally) Cardiovascular: RRR, no murmur, no edema Gastrointestinal (Abdomen): normal bowel sounds, soft, nontender, no hepatosplenomegaly Musculoskeletal: Extremities: no cyanosis and no clubbing Skin: no rashes, warm and dry Neurologic: awake ([place]) Results & Data Vital Signs (Past 12 Hours) Vital Signs Temp Pulse Pulse Resp BP BP Pulse Ox 06/10/24 07:22 36.6 C 77 16 119/65 95 06/10/24 07:00 73 06/10/24 03:44 36.5 C 68 17 117/70 96 06/09/24 23:11 36.5 C 71 17 128/74 95 06/09/24 21:46 70 O2 Del Method 06/10/24 07:22 Room Air 06/10/24 07:00 06/10/24 03:44 Room Air 06/09/24 23:11 Room Air 06/09/24 21:46 Laboratory Results Laboratory Results - last 24 hr 06/10/24 05:27 WBC 8.28 RBC 3.20 L Hgb 9.9 L Hct 28.6 L MCV 89.4 MCH 30.9 MCHC 34.6 RDW Std Deviation 46.1 RDW Coeff of Perez 14.1 Plt Count 216 MPV 10.2 Sodium 136 Potassium 3.9 D Chloride 101 Carbon Dioxide 27 Anion Gap 8 BUN 76 H Creatinine 5.11 H* D Est Cr Clr Drug Dosing 10.6 eGFR 10.68 BUN/Creatinine Ratio 14.9 Glucose 100 H Calcium 8.8 Magnesium 1.9 PG Care Time/CCT Total # of Minutes Spent Total Time Spent with Patient: Total time spent is greater than 50% in coordination of care (as documented) at patient's floor/unit and/or counseling patient: Coding Level of Care Code 37542 SUB INP/OBS CARE 3/50MIN Diagnoses Acute kidney injury N17.9 Chronic kidney disease, stage 4 (severe) N18.4 Influenza J11.1 Pneumonia J18.9
[2024-06-10] MEDS: DOCUSATE SODIUM 100 MG CAP PO SCH (08:52)
[2024-06-10] MEDS: bisacodyL 5 MG TABEC PO ONE (08:52)
--- NOTE | 2024-06-10 14:00 | Electrocardiogram Report ---
Test Reason : Blood Pressure : */* mmHG Vent. Rate : 73 BPM Atrial Rate : 73 BPM P-R Int : 176 ms QRS Dur : 106 ms QT Int : 398 ms P-R-T Axes : 62 -8 16 degrees QTcB Int : 438 ms Normal sinus rhythm Minimal voltage criteria for LVH, may be normal variant Poor R wave progression, consider anterior [place] vs. lead placement vs. LVH Abnormal ECG When compared with ECG of 07-Jun-2024 15:13, Aberrant conduction is no longer Present Confirmed by Noah Becker [id number] on 06/10/2024 2:00:32 PM Referred By: REFERRED SELF Confirmed By: Noah Becker
[2024-06-11 07:40] LABS: Hematocrit (blood only) 29.8 % (42.0-52.0); Mean Corpuscular Hemoglobin 30.3 pg (25.0-34.0); Mean Corpuscular Hgb Conc 33.6 g/dL (32.0-36.0); Mean Corpuscular Volume 90.3 fL (80.0-100.0); Mean Platelet Volume 10.1 fL (9.4-12.4); Platelet Count 233 K/uL (130-400); RDW Coefficient of Variation 14.1 % (11.5-14.5); RDW Standard Deviation 46.9 fL (36.4-46.3); White Blood Count 10.76 K/ul (4.8-10.8)
[2024-06-11 08:01] LABS: BUN Creatinine Ratio 14.3 (10-20); Calcium 8.9 mg/dl (8.6-10.3); Magnesium 1.6 mg/dl (1.7-2.4); Potassium 4.3 mmol/L (3.5-5.1)
--- NOTE | 2024-06-11 08:49 | Nephrology Progress Note ---
Date of Service June 11, 2024 Assessment & Plan (1) Acute kidney injury: Plan: * Nonoliguric PHI due to influenza, dehydration * Cr has improved from 7.3 to 4.89 * Urine sediment is negative for blood or casts * Noncontrast abdominal CT this hospitalization is negative for hydronephrosis * AGA has closed. Stop IV NaHCO3 * Encourage oral hydration * Monitor BMP * Discussed possibility of STEEL FABRICATOR w/ patient on admission. 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 Baseline Cr has recently risen to 3.4 (3) Influenza: Plan: * Remains on Oseltamivir therapy (4) Pneumonia: Plan: * Clinically improved but still has bronchial BS in bilateral LL * Suspect patient would benefit from continued IV antibiotics * On ceftriaxone, doxycycline Admission and Anticipated Discharge Date Admission Date: June 07, 2024 Subjective Mr. Baker was evaluated in his hospital room this morning. He was breathing comfortably on RA. He is subjectively improved Review of Systems Constitutional: no fever Eyes: no problem reported Ear, Nose, Mouth, Throat: no problem reported Respiratory: no cough and no dyspnea Cardiovascular: no chest pain Gastrointestinal: no abdominal pain, no nausea, no vomiting and no diarrhea/loose stools Genitourinary: no dysuria or no hematuria Musculoskeletal: no back pain Integumentary: no rash Physical Exam Constitutional: not in distress Eyes: PERRL, conjunctivae normal, anicteric sclerae ENMT: external ear and nose normal, oropharynx normal Neck: trachea midline, no thyromegaly Respiratory: normal respiratory effort Auscultation: + diminished lung sounds (at bases bilaterally) Cardiovascular: RRR, no murmur, no edema Gastrointestinal (Abdomen): normal bowel sounds, soft, nontender, no hepatosplenomegaly Musculoskeletal: Extremities: no cyanosis and no clubbing Skin: no rashes, warm and dry Neurologic: awake ([place]) Results & Data Vital Signs (Past 12 Hours) Vital Signs Temp Pulse Pulse Resp BP BP Pulse Ox 06/11/24 07:58 36.4 C L 75 18 129/70 95 06/11/24 07:00 72 06/11/24 03:30 36.7 C 74 20 101/52 L 93 06/10/24 22:48 36.5 C 67 18 114/72 96 06/10/24 22:45 80 O2 Del Method 06/11/24 07:58 Room Air 06/11/24 07:00 06/11/24 03:30 Room Air 06/10/24 22:48 Room Air 06/10/24 22:45 Laboratory Results Laboratory Results - last 24 hr 06/11/24 07:01 WBC 10.76 RBC 3.30 L Hgb 10.0 L Hct 29.8 L MCV 90.3 MCH 30.3 MCHC 33.6 RDW Std Deviation 46.9 H RDW Coeff of Perez 14.1 Plt Count 233 MPV 10.1 Sodium 137 Potassium 4.3 Chloride 101 Carbon Dioxide 28 Anion Gap 8 BUN 70 H Creatinine 4.89 H* Est Cr Clr Drug Dosing 12.0 eGFR 11.26 BUN/Creatinine Ratio 14.3 Glucose 103 H Calcium 8.9 Magnesium 1.6 L Total Creatine Kinase 298 H PG Care Time/CCT Total # of Minutes Spent Total Time Spent with Patient: Total time spent is greater than 50% in coordination of care (as documented) at patient's floor/unit and/or counseling patient: Coding Level of Care Code 79711 SUB INP/OBS CARE 3/50MIN Diagnoses Acute kidney injury N17.9 Chronic kidney disease, stage 4 (severe) N18.4 Influenza J11.1 Pneumonia J18.9
--- NOTE | 2024-06-11 18:10 | Hospitalist Progress Note ---
Date of Service June 11, 2024 Assessment & Plan (1) Pneumonia: (2) Influenza: (3) Acute kidney injury: (4) Acute hyponatremia: (5) Acute dehydration: (6) Chronic kidney disease, stage 4 (severe): (7) Elevated CK: Plan 83yo admitted for PHI/hyponatremia and found to have +flu/bilateral pneumonia on chest imaging, concerns for bacteremia/sepsis w/ PHI and Na 128 and procal 4.2 #Pneumonia, Influenza - IMPROVING, WBC normalized/remains afebrile and remains on CTX/Doxy as well as renal dosed tamiflu (can dc after tomorrows dose for 5 day course) Continue incentive spirometer/pulmonary toilet and O2 if needed as well as duonebs but remains on RA. Blood cx remain NGTD - clinically virtually resolved as of today, no growth on blood cultures. 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 Patient does NOT want HD CTAP w/o obstruction. No retention with bladder scan IVF hydration provided w 150meq bicarb and AGA resolved Nephrology consulted/following Home Lisinopril/dapagliflozin remain on hold and likely should remain on hold at dc and have close f/u with nephrology regarding resumption IF AT ALL Cr down to 4.8, good urine output not excessive Per nephrology, hopeful dc once Cr <4. potentially tomorrow BMP in AM #Hyponatremia -- in setting of above and poor PO intake/infection and diarrhea THREAD WINDER. IVF provided and resolved/remains stable and good PO intake reported. sodium was normal today #Elevated CK/mild rhabdo- suspect 2nd to poor PO intake/acute illness - resolved, can resume statin #HTN-On lisinopril at baseline w/ recent reduction in setting renal insufficiency. Lisinopril held as outlined above and BP stable and monitor for further reduction at dc vs stopping. Could use amlodipine vs other if needed for BP but currently normal DVT proph: heparin SQ Dispo: continued inpatient stay monitoring renal function and discharge pending repeat renal function. Nephrology following and will need close f/u with Dr [place] PT/[place] consulted and rec to return home with family support Updated son via phone 06/10 Admission and Anticipated Discharge Date Admission Date: June 07, 2024 Subjective Dionte feels good and wants to go home as soon as possible he is making good urine, no shortness of breath, no chest pain. Cough is much improved Physical Exam 2 Physical Exam: PHYSICAL EXAMINATION Last 24h vital signs reviewed, see documentation in flowsheet General: comfortable appearing, no distress, sitting up in the chair HEENT: Normocephalic, atraumatic, pupils round and equal, sclerae anicteric, no conjunctival injection, moist mucus membranes Lungs: Normal respiratory effort. Clear to auscultation bilaterally. No RRW Heart: Regular rate and rhythm, no murmurs. No JVD Abdomen: Soft, nontender, nondistended. Bowel sounds present. Extremities: Warm, dry, well-perfused. No extremity edema. Neuro: Alert and oriented x 4, face symmetric, moves 4 extremities well Psych: Normal affect and behavior Results & Data Results & Data Vital Signs (Past 12 Hours) Vital Signs Temp Pulse Pulse Resp BP BP Pulse Ox 06/11/24 15:43 76 06/11/24 15:30 37 C 69 18 135/76 94 06/11/24 11:32 36.4 C L 84 18 127/77 96 06/11/24 08:00 06/11/24 07:58 36.4 C L 75 18 129/70 95 06/11/24 07:00 72 O2 Del Method 06/11/24 15:43 06/11/24 15:30 Room Air 06/11/24 11:32 Room Air 06/11/24 08:00 Room Air 06/11/24 07:58 Room Air 06/11/24 07:00 Laboratory Results 06/11/24 07:01 06/11/24 07:01 PG Care Time/CCT Total # of Minutes Spent Total Time Spent with Patient: Total time spent is greater than 50% in coordination of care (as documented) at patient's floor/unit and/or counseling patient: Coding Level of Care Code 18134 SUB INP/OBS CARE 2/35MIN Diagnoses Pneumonia J18.9 Influenza J11.1 Acute kidney injury N17.9 Acute hyponatremia E87.1 Acute dehydration E86.0 Chronic kidney disease, stage 4 (severe) N18.4 Elevated CK R74.8
--- NOTE | 2024-06-12 08:51 | Nephrology Progress Note ---
Date of Service June 12, 2024 Assessment & Plan (1) Acute kidney injury: Plan: * Nonoliguric PHI due to influenza, dehydration * Cr has improved from 7.3 to 4.7 * Urine sediment is negative for blood or casts * Noncontrast abdominal CT this hospitalization is negative for hydronephrosis * AGA has closed. Stop IV NaHCO3 * Encourage oral hydration * Monitor BMP * Discussed possibility of BOX TOE CEMENTER w/ patient on admission. He reaffirms that dialysis is not c/w his goals of care * Patient is nonoliguric. Renal function is slowly improving. Electrolyte balance is acceptable. Patient requests discharge home today. If discharge is acceptable, please advised patient to follow a low K diet and follow up w/ Dr. Waters within 7-14 days. Patient should complete nonfasting blood work 2 days prior to OV. I will ask my promotions officer staff to schedule outpatient visit w/ Dr. 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 Baseline Cr has recently risen to 3.4 (3) Influenza: Plan: * Remains on Oseltamivir therapy (4) Pneumonia: Plan: * Clinically improved but still has bronchial BS in bilateral LL * On ceftriaxone, doxycycline Admission and Anticipated Discharge Date Admission Date: June 07, 2024 Subjective Mr. Baker was evaluated in his hospital room this morning. He was breathing comfortably on RA. He is requesting discharge to home today Review of Systems Constitutional: no fever Eyes: no problem reported Ear, Nose, Mouth, Throat: no problem reported Respiratory: no cough and no dyspnea Cardiovascular: no chest pain Gastrointestinal: no abdominal pain, no nausea, no vomiting and no diarrhea/loose stools Genitourinary: no dysuria or no hematuria Musculoskeletal: no back pain Integumentary: no rash Physical Exam Constitutional: not in distress Eyes: PERRL, conjunctivae normal, anicteric sclerae ENMT: external ear and nose normal, oropharynx normal Neck: trachea midline, no thyromegaly Respiratory: normal respiratory effort Auscultation: + diminished lung sounds (at bases bilaterally) Cardiovascular: RRR, no murmur, no edema Gastrointestinal (Abdomen): normal bowel sounds, soft, nontender, no hepatosplenomegaly Musculoskeletal: Extremities: no cyanosis and no clubbing Skin: no rashes, warm and dry Neurologic: awake (CHEVAK) Results & Data Vital Signs (Past 12 Hours) Vital Signs Temp Pulse Pulse Resp BP Pulse Ox O2 Del Method 06/12/24 07:53 37.2 C 87 16 131/76 95 Room Air 06/12/24 07:00 71 06/12/24 04:00 36.6 C 76 20 114/66 94 Room Air 06/11/24 23:39 36.3 C L 76 20 122/74 79 L Room Air 06/11/24 22:56 78 Laboratory Results Laboratory Results - last 24 hr 06/12/24 07:43 Sodium 134 L Potassium 4.6 Chloride 99 Carbon Dioxide 26 Anion Gap 9 BUN 65 H Creatinine 4.70 H* Est Cr Clr Drug Dosing 12.6 eGFR 11.81 BUN/Creatinine Ratio 13.8 Glucose 105 H Calcium 9.1 PG Care Time/CCT Total # of Minutes Spent Total Time Spent with Patient: Total time spent is greater than 50% in coordination of care (as documented) at patient's floor/unit and/or counseling patient: Coding Level of Care Code 64448 SUB INP/OBS CARE 3/50MIN Diagnoses Acute kidney injury N17.9 Chronic kidney disease, stage 4 (severe) N18.4 Influenza J11.1 Pneumonia J18.9
[2024-06-12 09:17] LABS: BUN Creatinine Ratio 13.8 (10-20); Calcium 9.1 mg/dl (8.6-10.3); Creatinine Clr Calc Pharmacy 12.6 ml/min; Potassium 4.6 mmol/L (3.5-5.1)
[2024-06-12] MEDS: INFLUENZA VACC TS2024-25(65y+)/PF (IIV3) 0.5mL Syr IM ONE (12:23)
[2024-06-12 12:52] VITALS: RESP 18
--- NOTE | 2024-06-12 13:35 | Hospitalist Progress Note ---
Date of Service June 12, 2024 Assessment & Plan (1) Pneumonia: (2) Influenza: (3) Acute kidney injury: (4) Acute hyponatremia: (5) Acute dehydration: (6) Chronic kidney disease, stage 4 (severe): (7) Elevated CK: Plan 83yo admitted for PHI/hyponatremia and found to have +flu/bilateral pneumonia on chest imaging, concerns for bacteremia/sepsis w/ PHI and Na 128 and procal 4.2 #Pneumonia - * b/l pneumonia - improved * d/c IV rocephin, d/c IV doxy * change to PO omnicef 300mg daily x 3 additional days * change to PO doxy 100mg BID x 3 additional days #Influenza A infection - * improving * one more dose of Tamiflu tomorrow then d/c * cont droplet precautions #PHI on CKD stage IV - Cr 7.4 on admission (baseline 2-3) in setting of diarrhea/flu/pneumonia PHI is in the setting of lisinopril/dapagliflozin use -- both remain on hold CT abd/pelvis w/o obstruction. He is nonoliguric Cr today 4.7 - slowly improving K level wnl Not acidotic BMP in am #Hyponatremia - resolved; was 2nd to volume depletion at time of admission #Elevated CK/mild rhabdomyolysis - resolved * peak CPK 1784 * influenza/viruses in general can cause rhabdo - this was the likely cause #HTN - remains controlled despite holding his lisinopril * cont to observe off the lisinopril DVT proph: heparin 5000 units BID Dispo: home tomorrow, 06/13 ambulate in hallways several times today in preparation for d/c home tomorrow pt's brother updated at bedside today Admission and Anticipated Discharge Date Admission Date: June 07, 2024 Subjective tele overnight wnl patient reports feeling tired/fatigue appetite has been poor but improved today; did eat more today than previous mild cough pt's brother was at bedside Review of Systems Review of Systems: gen - no fevers or chills cv - no chest pain pulm - no dyspnea or FABIAN GI - no diarrhea Physical Exam Physical Exam: gen - NAD, nontoxic, a/o x 3 neck - no JVD mouth - MMM heart - RRR, s1 s2, no murmur lungs - right basilar rales, decreased BS bases, otherwise CTA b/l abd - soft NT ND BS+ ext - no edema, pulses 2+ b/l Results & Data Results & Data Vital Signs (Past 12 Hours) Vital Signs Temp Pulse Pulse Resp BP Pulse Ox O2 Del Method 06/12/24 12:50 36.6 C 85 18 117/64 97 Room Air 06/12/24 08:00 Room Air 06/12/24 07:53 37.2 C 87 16 131/76 95 Room Air 06/12/24 07:00 71 06/12/24 04:00 36.6 C 76 20 114/66 94 Room Air Laboratory Results Laboratory Results - last 24 hr 06/12/24 07:43 Sodium 134 L Potassium 4.6 Chloride 99 Carbon Dioxide 26 Anion Gap 9 BUN 65 H Creatinine 4.70 H* Est Cr Clr Drug Dosing 12.6 eGFR 11.81 BUN/Creatinine Ratio 13.8 Glucose 105 H Calcium 9.1 PG Care Time/CCT Total # of Minutes Spent Total Time Spent with Patient: Total time spent is greater than 50% in coordination of care (as documented) at patient's floor/unit and/or counseling patient: Coding Level of Care Code 63930 SUB INP/OBS CARE 2/35MIN Diagnoses Pneumonia J18.9 Influenza J11.1 Acute kidney injury N17.9 Acute hyponatremia E87.1 Acute dehydration E86.0 Chronic kidney disease, stage 4 (severe) N18.4 Elevated CK R74.8
[2024-06-12] MEDS: DOXYCYCLINE HYCLATE 100 MG CAP PO SCH (17:37)
[2024-06-12] MEDS: CEFDINIR 300 MG CAP PO SCH (21:20)
[2024-06-13 03:08] VITALS: O2SAT 96
[2024-06-13 06:56] LABS: BUN Creatinine Ratio 14.6 (10-20); Calcium 9.1 mg/dl (8.6-10.3)
[2024-06-13 07:56] VITALS: TEMP 98.2
--- NOTE | 2024-06-13 08:57 | Nephrology Progress Note ---
Date of Service June 13, 2024 Assessment & Plan (1) Acute kidney injury: Plan: * Nonoliguric PHI due to influenza, dehydration * Cr has improved from 7.3 to 4.5 * Urine sediment is negative for blood or casts * Noncontrast abdominal CT this hospitalization is negative for hydronephrosis * Encourage oral hydration * Discussed possibility of SET MAKING MACHINE OPERATOR w/ patient on admission. He reaffirms that dialysis is not c/w his goals of care * Patient is nonoliguric. Renal function is slowly improving. Electrolyte balance is acceptable. Patient requests discharge home today. If discharge is acceptable, please advised patient to follow a low K diet and follow up w/ Dr. Waters within 7-14 days. Patient should complete nonfasting blood work 2 days prior to OV. I have asked my office staff to schedule outpatient visit w/ Dr. 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 Baseline Cr has recently risen to 3.4 (3) Influenza: Plan: * Completed Oseltamivir therapy this morning (4) Pneumonia: Plan: * Clinically improved but still has bronchial BS in bilateral LL * Transitioned to doxycycline and cefdinir therapy Admission and Anticipated Discharge Date Admission Date: June 07, 2024 Subjective Mr. Baker was evaluated in his hospital room this morning. He was breathing comfortably on RA. He expects to be discharged home this morning Review of Systems Constitutional: no fever Eyes: no problem reported Ear, Nose, Mouth, Throat: no problem reported Respiratory: no cough and no dyspnea Cardiovascular: no chest pain Gastrointestinal: no abdominal pain, no nausea, no vomiting and no diarrhea/loose stools Genitourinary: no dysuria or no hematuria Musculoskeletal: no back pain Integumentary: no rash Physical Exam Constitutional: not in distress Eyes: PERRL, conjunctivae normal, anicteric sclerae ENMT: external ear and nose normal, oropharynx normal Neck: trachea midline, no thyromegaly Respiratory: normal respiratory effort Auscultation: + diminished lung sounds (at bases bilaterally) Cardiovascular: RRR, no murmur, no edema Gastrointestinal (Abdomen): normal bowel sounds, soft, nontender, no hepatosplenomegaly Musculoskeletal: Extremities: no cyanosis and no clubbing Skin: no rashes, warm and dry Neurologic: awake (SNOQUALMIE) Results & Data Vital Signs (Past 12 Hours) Vital Signs Temp Pulse Resp BP Pulse Ox O2 Del Method 06/13/24 07:55 36.8 C 74 18 131/75 96 Room Air 06/13/24 07:40 Room Air 06/13/24 02:49 36.6 C 69 18 110/69 96 Room Air 06/12/24 22:16 36.7 C 78 18 120/71 95 Room Air 06/12/24 21:15 Room Air Laboratory Results Laboratory Results - last 24 hr 06/13/24 06:04 Sodium 133 L Potassium 5.0 Chloride 98 Carbon Dioxide 28 Anion Gap 7 BUN 66 H Creatinine 4.53 H* Est Cr Clr Drug Dosing 12.0 eGFR 12.34 BUN/Creatinine Ratio 14.6 Glucose 98 Calcium 9.1 PG Care Time/CCT Total # of Minutes Spent Total Time Spent with Patient: Total time spent is greater than 50% in coordination of care (as documented) at patient's floor/unit and/or counseling patient: Coding Level of Care Code 16741 SUB INP/OBS CARE 3/50MIN Diagnoses Acute kidney injury N17.9 Chronic kidney disease, stage 4 (severe) N18.4 Influenza J11.1 Pneumonia J18.9
[2024-06-13 10:38] VITALS: BP 127/77; PULSE 74
--- NOTE | 2024-06-13 10:39 | Discharge Summary ---
Discharge Summary Date of Service date of admission - June 07, 2024 date of discharge - June 13, 2024 Principal Dx & Hospital Course #1 = Principal Diagnosis (1) Pneumonia: (2) Influenza: (3) Acute kidney injury: (4) Acute hyponatremia: (5) Acute dehydration: (6) Chronic kidney disease, stage 4 (severe): (7) Sepsis: (8) Rhabdomyolysis: Plan 83yo admitted for PHI/hyponatremia and found to have +influenza A infection/felipe ateral pneumonia on chest imaging, concerns for sepsis, PHI, and Na 128 at time of admission. #Pneumonia - * b/l pneumonia was seen on the lung cuts of his admission CT of the abdomen/pelvis * was treated for CAP with IV rocephin/doxycycline in the setting of influenza A infection * later in the stay was changed to Omnicef 300mg PO daily x 3 additional days as well as 3 days of doxycycline 100mg PO BID * he was never hypoxic during the hospitalization and did not require any supplemental O2 #Influenza A infection - * tested positive for such upon admission * completed a full 5-day course of Tamiflu while hospitalized * treated for bacterial superinfection as noted above #sepsis - * 2nd to influenza A infection + bacterial superinfection/CAP of the b/l lower lobes * blood cultures were negative while here #PHI on CKD stage IV - * Creatinine 7.4 on admission (baseline ~3 to 3.5) in setting of diarrhea/fluA/pneumonia * PHI was also in the setting of lisinopril/dapagliflozin use -- both were held while here and held upon discharge * CT abd/pelvis w/o obstruction * He was nonoliguric during the visit * [facility] provided consultation for his PHI/CKD * Creatinine improved to 4.5 on day of discharge * at discharge advised the following - * low potassium diet * repeat BMP within 5-7 days of discharge to ensure stable electrolytes and ongoing renal recovery * continue to hold lisinopril & dapagliflozin #Hyponatremia - largely resolved; was 2nd to volume depletion at time of admission (from diarrhea, etc) * lowest Na level - 128 * discharge Na level - 133 * again he needs repeat BMP within 1 week of discharge #Elevated CK/mild rhabdomyolysis - resolved * peak CPK 1784, improving to <300 at discharge * influenza/viruses in general can cause rhabdomyolysis - this was the likely cause * statin can be continued at discharge since the CPK is just about normal #HTN - remained controlled despite holding his lisinopril * cont to observe off the lisinopril at discharge Notes For Next Care Provider * BMP within 1 week of discharge * f/u [facility] shortly after discharge * low potassium diet Medication Changes From Visit 1. omnicef 300mg daily x 2 days 2. doxycycline 100mg BID x 2 days 3. HOLD dapagliflozin 3. HOLD lisinopril Admission HPI Per Admitting Provider 83yo male with hx renal insufficiency followed by Dr Waters outpatient developed the flu this past week and had poor PO intake along with diarrhea this week and outpatient labs showed hyponatremia and PHI w/ Cr to 7 suspected from poor PO intake/dehydration and flu but also found to have b/l pneumonia as well and nephrology notified by ER provider and recommended hydration and no need for HD this morning and will follow. Admission for abx, IV hydration and nephrology consult along with therapy consultation and supportive care and treatment of his pneumonia. +flu testing, procal and blood cx pending and ordered for Ceftriaxone/Doxy in ER but not yet given. Eval in C5, multiple family in room. Had cough/sputum this past week along with significant diarrhea and poor PO intake. . Denied dysuria or burning but did note decreased urine output. No fever at home but did report he couldn't get warm prior. Discussed he does NOT want HD, but did have discussion suspected combination renal insufficiency along with ongoing RUDY/dapagliflozin probably worsened renal function and dehydration in setting of acute illness. He is dissappointed about need for admission but agreeable and hopefully discharge in next 24-48 hours pending response. IVF changed to improve anion gap/acidosis suspected from diarrhea and will monitor his labs/encouraged PO intake. Notable, denied vomiting. Alert/oriented, uses cane for ambulation. Discussed UA and sputum cx and STUDIO MANAGER notified to provide cup and hat for sample. Discussed possibly flu developed into bacterial PNA and will tx both. Full code. Family updated at bedside, questions/concerns addressed at this time. Discharge Exam gen - NAD, nontoxic, a/o x 3, looks good today neck - no JVD mouth - MMM heart - RRR, s1 s2, 2/6 systolic murmur RUSB lungs - right basilar rales, decreased BS bases, otherwise CTA b/l abd - soft NT ND BS+ ext - no edema, pulses 2+ b/l Discharge Plan Discharge Items Patient Disposition: Home - Self-Care Reason For Visit: acute kidney injury, influenza, pneumonia Discharge Diagnosis: 1. acute kidney injury (a rise in your creatinine level) - improving 2. influenza A infection - resolved 3. pneumonia - resolving 4. chronic kidney disease stage 4 5. valvular heart disease (aortic stenosis & mitral regurgitation) Activity: As commented below Activity Comment: gradually increase activities over the next 5-7 days Non-emergency contact: Primary Care Provider and Pearl Fisherman Call non-emergency contact if: you have any medication questions and your symptoms worsen Follow-up/Referrals: Simon Masters MD [Primary Care Provider] - 06/19/24 2:00 pm () Anum Waters MD [Physician] - 06/20/24 2:20 pm Diet: Low Potassium (2gm) Addtl Attending Provider Instructions: Mr Baker, Nestor were hospitalized due to influenza A infection, pneumonia, and acute kidney injury. Acute kidney injury is when the creatinine in the blood rises above normal. Your creatinine rafaela to over 7 but has improved all the way down to 4.5 on 06/13/24. Your creatinine typically runs in the 3 to 3.5 range. The creatinine should continue to improve over the next 1-2 weeks. Your influenza was treated with Tamiflu anti-viral medicine; you have completed the full course of this. Your pneumonia was treated with IV then oral antibiotics. You have improved nicely from the standpoint of the flu & pneumonia. Recommendations - 1. HOLD the following medicines - * lisinopril * dapagliflozin 2. Have a blood draw on June 18, 2024. This is in preparation for your visit with Dr Waters next week. The blood orders are already in the computer. You can have these checked at the hospital main lab or at the [facility] or any other [facility] office location that has lab services. 3. Antibiotics for pneumonia - * cefdinir 300mg once daily in the evening on 06/13 and 06/14 then stop * doxycycline 100mg twice daily x 4 doses then stop * most common side effect of both antibiotics - diarrhea * occasionally some people have stomach upset from doxycycline * rarely a person can get a rash if they are taking doxycycline and go out in the sun for prolonged periods of time; thus, for the next few days if you go outside, cover up & use sunscreen 4. You are unlikely to be contagious to others from the influenza. You can leave your home, be around others, etc. 5. Plan to take it easy today and tomorrow then resume driving on Monday. 6. If you need to take anything for cough you can use [id number] Mucinex up to 1200mg twice daily as desired. 7. Follow a low potassium diet. See handout. 8. You probably have another week or so of recovery from your illness. You may be more tired than normal during the recovery period. Rest as needed and you can resume normal activities as tolerated over time. 9. Use a walker around your home especially over the next week or two. Follow-up - see separate section Return to [facility] if - * you have fevers over 100 degrees * you develop severe diarrhea (3 or more liquid stools in 24 hours) * you have worsening shortness of breath * you have chest pains * any other concerns It was our pleasure to care for you! Happy birthday! -Dr Browne Pending Studies at Discharge: No Stand-Alone Forms: My [facility], Smoking Cessation Medications and DC Order Prescriptions: Continued bupropion HCl 150 mg tablet sustained-release 12 hr 150 mg PO HS Qty: 90 3RF cholecalciferol (vitamin D3) [Vitamin D3] 25 mcg (1,000 unit) capsule 2,000 unit PO QAM Qty: 90 3RF atorvastatin 20 mg tablet 20 mg PO HS Qty: 90 3RF Held lisinopril 20 mg tablet 20 mg PO QAM Qty: 90 3RF Hold Instructions: phi dapagliflozin propanediol 10 mg tablet 10 mg PO DAILY Qty: 90 3RF Hold Instructions: phi Discharge Orders: Discharge Order (Routine); Ordered 06/13/24 Ordered By: Tyler Gayle/Other Patient Handouts: Low Potassium Diet Dc Admission Data Admit Date/Time: 06/07/24 17:51 Attending Provider: Tyler Browne Admit Provider: Abiola Nick Primary Care Provider: Simon Masters. Other Providers: Alfredo Agrawal Other Interventions: Discharge Summary Assessment (RN) Last Done: 06/13/24 10:43 Hospital Stay Data Consultations Nephrology PT, OT Diagnostic Imagining Performed Chest X-Ray 06/07/24 15:01 XR chest 1V not portable CLINICAL HISTORY: Weakness COMPARISON STUDY: 09/03/2018 FINDINGS: Heart size and pulmonary vasculature are normal. There is aortic tortuosity. No effusion, consolidation, or pneumothorax seen. There are a few old healed right rib fractures. IMPRESSION: No acute findings. ACT 112: Negative or not required by law. Electronically signed by: Nilton Thacker M.D. 06/07/2024 4:04 PM Abdomen/Pelvis CT 06/07/24 16:20 Clinical History: Diarrhea. Decreased appetite Technique: Axial computed tomography images were obtained of the abdomen and pelvis without intravenous contrast. Comparison is made to the chest CT dated 09/03/2018 Findings: The liver is overall of normal size, attenuation, and contour with no sign of cirrhosis or significant fatty infiltration. No definite liver mass lesion is seen on this noncontrast study. The gallbladder appears unremarkable. No bile duct dilatation is noted. The spleen is of normal size. No focal splenic lesion is evident. The pancreas appears normal with no sign of acute or chronic pancreatitis and no mass lesion noted. The pancreatic duct is of normal caliber. The adrenal glands appear unremarkable. No renal or proximal ureteral calculi are seen. There is no hydronephrosis or perinephric stranding. No definite renal mass lesion is identified. There is a 1.6 cm right renal cyst as well as a 1.3 cm right renal cyst There is a mild infrarenal abdominal aortic aneurysm, measuring up to 3.3 cm. No abdominal adenopathy is seen. The stomach appears normal. There is no sign of small bowel obstruction. The colon appears unremarkable. The appendix appears normal also. No free intraperitoneal fluid or air is identified. No distal ureteral or bladder calculi are seen. No obvious bladder mass lesion is evident. 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 No pelvic adenopathy is noted. There are radiotherapy implant seeds within the prostate. There are small bilateral inguinal hernias containing any fat There is unchanged pleural thickening in the right lung base. There are new multifocal centrilobular interstitial and nodular opacities in the lung bases bilaterally, most likely due to bronchopneumonia. The visualized descending thoracic aorta is mildly aneurysmal, measuring 3.1 cm. There is coronary atherosclerosis Lumbar degenerative disc disease is seen. No fracture is identified. No focal osseous lesion is seen Impression: 1. Bilateral bronchopneumonia 2. Mild thoracic aortic aneurysm and mild abdominal aortic aneurysm. 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 Small right renal cysts 4. Small bilateral inguinal hernias containing only fat ACT 112: Positive. There are findings on this exam that require communication between the performing entity and the patient following Patient Test Result Information Act ([place] ACT 112) guidelines. Electronically signed by Terry Corbett 06-07-2024 4:53 PM Pending Results Patient Have Any Pending Studies at Discharge: No Discharge Instructions Given to Patient (Per Discharging Provider) Mr Baker, You were hospitalized due to influenza A infection, pneumonia, and acute kidney injury. Acute kidney injury is when the creatinine in the blood rises above normal. Your creatinine rafaela to over 7 but has improved all the way down to 4.5 on 06/13/24. Your creatinine typically runs in the 3 to 3.5 range. The creatinine should continue to improve over the next 1-2 weeks. Your influenza was treated with Tamiflu anti-viral medicine; you have completed the full course of this. Your pneumonia was treated with IV then oral antibiotics. You have improved nicely from the standpoint of the flu & pneumonia. Recommendations - 1. HOLD the following medicines - * lisinopril * dapagliflozin 2. Have a blood draw on June 18, 2024. This is in preparation for your visit with Dr Waters next week. The blood orders are already in the computer. You can have these checked at the hospital main lab or at the [facility] or any other [facility] location that has lab services. 3. Antibiotics for pneumonia - * cefdinir 300mg once daily in the evening on 06/13 and 06/14 then stop * doxycycline 100mg twice daily x 4 doses then stop * most common side effect of both antibiotics - diarrhea * occasionally some people have stomach upset from doxycycline * rarely a person can get a rash if they are taking doxycycline and go out in the sun for prolonged periods of time; thus, for the next few days if you go outside, cover up & use sunscreen 4. You are unlikely to be contagious to others from the influenza. You can leave your home, be around others, etc. 5. Plan to take it easy today and tomorrow then resume driving on Monday. 6. If you need to take anything for cough you can use [id number] Mucinex up to 1200mg twice daily as desired. 7. Follow a low potassium diet. See handout. 8. You probably have another week or so of recovery from your illness. You may be more tired than normal during the recovery period. Rest as needed and you can resume normal activities as tolerated over time. 9. Use a walker around your home especially over the next week or two. Follow-up - see separate section Return to [facility] if - * you have fevers over 100 degrees * you develop severe diarrhea (3 or more liquid stools in 24 hours) * you have worsening shortness of breath * you have chest pains * any other concerns It was our pleasure to care for you! Happy birthday! -Dr Browne Total Time Total Time Spent Total Time Spent (In Minutes): 40 Coding Level of Care Code 52943 INP/OBS DISCH >30 MIN Diagnoses Pneumonia J18.9 Influenza J11.1 Acute kidney injury N17.9 Acute hyponatremia E87.1 Acute dehydration E86.0 Chronic kidney disease, stage 4 (severe) N18.4 Sepsis A41.9 Rhabdomyolysis M62.82
--- NOTE | 2024-06-14 11:18 | Coding Query ---
SEPSIS To promote full compliance with coding requirements relating to patient care, physician participation is requested in all cases of blankmaker uncertainty. Please assist us with the question(s) below: In responding to this query, please exercise your independent professional judgement. The fact that a question is asked does not imply that any particular answer is desired or expected. We appreciate your clarification on this issue. Throughout the medical record, you have clearly documented a localized infection and your patient has clinical evidence of a generalized sepsis or severe sepsis. The term urosepsis is a nonspecific entity and is coded as an UTI. If the patient has sepsis, severe sepsis, from an urinary source or some other source, please clarify in your response below. The medical record reflects the following clinical findings: (With dates as appropriate) (Body temperature of >38.3 C(101 F) or <36 C(96.8F), pulse >90/minute, respirations >20/minute, WBC count >12,000 or <4,000, altered mental status, significant edema or positive fluid balance, hyperglycemia without diabetes, hypotension, metabolic acidosis (elev. lactate level, anion gap or reduced blood pH), shock, positive blood culture (enter organism) ____ ()Bacteremia (Nonspecific laboratory finding of bacteria in the blood) Specify Organism () Present on Admission () Not present on admission () Unable to clinically determine () Septicemia (Systemic disease associated with the presence of pathogenic microorganisms in the blood): Specify Organism () Present on Admission () Not present on admission () Unable to clinically determine (x) Sepsis Specify Organism Specify Associated Condition/Diagnosis (x) Present on Admission () Not present on admission () Unable to clinically determine () Severe Sepsis (Sepsis associated with acute organ dysfunction) Specify Organism Specify Associated Condition/Diagnosis () Present on Admission () Not present on admission () Unable to clinically determine () Septic Shock (Severe sepsis with acute circulatory failure, unexplained by other causes) () Present on Admission () Not present on admission () Unable to clinically determine () Other, patient has: MTDD
== END 2024-06-13 11:54 | disposition home or self-care (01) | DRG 871 ==
LOC: SUATTDRO → ED 14:49 → SUATTDRO 17:51 → 2W 17:51